=== PATIENT | female | born 1985 | race Caucasian/White ===

== ENCOUNTER 2018-04-24 15:19 | Outpatient (REF) | payer MEDICAID, SELFPAY ==
--- NOTE | 2018-04-24 14:30 | PAPFT_PTH ---
PATIENT: Tsering Washington LOC: [facility] U#:[id number] AGE/SX: 32/F ROOM: RE04/24/[address]: LEN Sharma : 1985 BED: DIS: 04/24/2018 SPEC #: [id number] RECD: 04/24/18 18:15 STATUS: SERVANDODavid BLANCO #: [id number] SAROJ: 04/24/18 14:[address]: Iris Nichols DEPT: [facility] Cytology RECD BY: Mahsa Johnson ENTERED: 04/24/18 18:15 SP TYPE: PAPFT OTHR DR: Eliza Arellano Tissues: 1 - CX/ENDOCX FOR PAP SMEARS Procedures: PAP THIN PREP/UVM Screening HPV DNA PROBE Comments: [id number]
== END 2018-04-24 15:39 ==
LOC: LBN 15:19
PROVIDERS: PCP Nurse Practitioner; Visit Provider Nurse Practitioner Family
DX: Z12.4 Encounter for screening for malignant neoplasm of cervix (principal); Z11.51 Encounter for screening for human papillomavirus (HPV)
CPT/HCPCS: 88142; 87624

== ENCOUNTER 2018-11-28 17:04 | Emergency (ER) | payer MEDICAID, SELFPAY ==
[2018-11-28 17:07] VITALS: BP 152/107; PULSE 85; RESP 18; TEMP 36.6; O2SAT 100
[2018-11-28 17:20] VITALS: RESP 16
--- NOTE | 2018-11-28 18:31 | ED.GENADUL_ITS ---
Discharge Plan Disposition Patient Disposition: OTHER Discharge Details Chief Complaint: GenMedical Clinical Impression: Left against medical advice Primary Care Provider: Eliza Arellano ED Provider: Rhett Mirza Home Meds and New Rx's Prescriptions: No Action medroxyprogesterone 150 mg/mL syringe 150 mg IM [id number] Qty: 1 RF: 5 Complete Multivitamin tablet 1 tab PO DAILY RF: 0 valacyclovir [Valtrex] 500 mg tablet 500 mg PO Q12H PRN Qty: 6 RF: 11 Discharge Data Discharge Comment: Patient left prior to completion of service Medical Decision Making 18:35 This is a nontoxic-appearing 33-year-old female with URI symptoms and cough. She complains of shortness of breath with exertion and chest heaviness. She apparently has a history of pneumonia very similar to her symptoms today. Her lungs are clear to auscultation bilaterally. She is not in any form of respiratory distress at the bedside. Plan was give patient an albuterol MDI with spacer training along with chest x-ray to evaluate for potential of pneumonia. Patient eloped from the emergency department prior to the completion of her work-up. [facility] General Date/Time Provider Initiated Documentation: 11/28/18 17:15 . HPI Narrative: Patient is a 33-year-old female with history of pneumonia presents to the emergency department with cold-like symptoms over the last week. She states that she had nasal congestion and sore throat along with a episode of pinkeye. She states that her URI symptoms have self resolved however she is now complaining of cough and shortness of breath. She is unable to produce any sputum. She reports dyspnea on exertion. She does feel chest tightness associated with her cough. She is had pneumonia in the past and her symptoms today feel very similar to that. Related Data Home Medications Medication Instructions Recorded Confirmed valacyclovir 500 mg tablet 500 mg PO Q12H PRN #6 tab 02/06/18 10/04/18 multivitamin,[id number] 1 tab PO DAILY 04/24/18 10/04/18 medroxyprogesterone 150 mg/mL 150 mg IM [id number] #1 ml 10/04/18 10/04/18 intramuscular syringe Previous Rx's Medication Instructions Recorded valacyclovir 500 mg tablet 500 mg PO Q12H PRN #6 tab 02/06/18 medroxyprogesterone 150 mg/mL 150 mg IM [id number] #1 ml 10/04/18 intramuscular syringe Allergies Allergy/AdvReac Type Severity Reaction Status Date / Time tramadol Allergy Severe face Verified 10/04/18 13:44 swelling, itching General Stated Complaint: GenMedical SOURAV: 4 Review of Systems Constitutional Reports chills, Reports fatigue, Reports fever(s) and Reports night sweats Eyes Denies blurry vision ENT Reports nasal congestion, Reports sinus pain, Reports sinus pressure and Reports sore throat Cardiovascular Denies chest pain and Reports dyspnea Respiratory Reports cough and Reports dyspnea Gastrointestinal Denies diarrhea, Denies nausea and Denies vomiting Musculoskeletal Denies myalgias Endocrine Reports fatigue [facility] Medical History Personal history of cervical dysplasia (Chronic 04/19/17) 2007 - [facility] III L[facility] Surgical History Cervical Conization/LEEP 2007- [facility] Family History Mother No problems noted. Father Diabetes Social History Smoking/Tobacco Use Status: Former Tobacco Use Quit Date: 10/28/18 Drug use: Never Substance use type: does not use Do you feel safe in your relationship?: Yes Female Reproductive History Menstrual control method: other (partner with vasectomy) History History 5 Para Hx # Term Pregnancies 3 Multiple births Hx # Pregnancies Ectopic pregnancies AB induced Hx Number of Living Children AB spontaneous Exam Const General: cooperative, healthy appearing, comfortable and no acute distress [facility] Head: normal to inspection Face and sinus: normal facial exam Mouth: oral mucosae normal Teeth and gingiva: dentition normal Throat: posterior oropharynx normal Eyes General: appearance normal, both eyes and all related structures Conjunctivae: conjunctivae normal Neck Neck: normal visual inspection, full ROM, no lymphadenopathy and no meningeal signs Lymphatic: no lymphadenopathy noted Chest Chest: normal inspection of the chest Resp Effort & Inspection: normal respiratory effort Auscultation: clear to auscultation bilaterally Cardio Jugular venous pressure: no JVD Rate: regular rate Rhythm: regular rhythm Heart Sounds: S1 normal and S2 normal Back/Spine/Pelvis Back: no CVA tenderness Skin General skin exam: no rashes or lesions noted Course Vital Signs Temperature 36.6 C 11/28/18 17:07 Pulse 85 11/28/18 17:07 Respiratory Rate 18 11/28/18 17:07 Blood Pressure 152/107 H 11/28/18 17:07 Pulse Oximetry 100 11/28/18 17:07 Temperature 36.6 C 11/28/18 17:07 Pulse 85 11/28/18 17:07 Respiratory Rate 16 11/28/18 17:20 Respiratory Effort Non-Labored 11/28/18 17:20 Respiratory Depth Normal 11/28/18 17:20 Respiratory Pattern Normal 11/28/18 17:20 Blood Pressure 152/107 H 11/28/18 17:07 Blood Pressure Position Sitting 11/28/18 17:07 Pulse Oximetry 100 11/28/18 17:07 Oxygen Delivery Method Room Air 11/28/18 17:07 Oxygen Flow Rate 0 11/28/18 17:07 Pain Level 2 11/28/18 17:07
== END 2018-11-28 18:25 | disposition other institution (70) ==
PROVIDERS: Emergency Provider Physician Assistant; PCP Nurse Practitioner
DX: R06.02 Shortness of breath (principal); R05 Cough; Z87.01 Personal history of pneumonia (recurrent)
CPT/HCPCS: 93005; 99284; 93010

== ENCOUNTER 2018-12-07 18:21 | Emergency (ER) | payer MEDICAID, SELFPAY ==
--- NOTE | 2018-12-07 18:25 | NUR.NOTE ---
Nursing Note: pt hit distal tip of third digit with with hammer at 1800 pt sates 8/10 pain. minimal bleeding
[2018-12-07 18:26] VITALS: BP 163/119; PULSE 90; RESP 16; TEMP 37.2; O2SAT 99
--- NOTE | 2018-12-07 18:46 | W.ED.GENAD ---
Discharge Plan Disposition Patient Disposition: HOME Condition: Improving Discharge Details Chief Complaint: Laceration Clinical Impression: Avulsion of finger tip Primary Care Provider: Eliza Arellano ED Provider: gS Fair Home Meds and New Rx's Prescriptions: Continued medroxyprogesterone 150 mg/mL syringe 150 mg IM [id number] Qty: 1 RF: 5 Complete Multivitamin tablet 1 tab PO DAILY RF: 0 valacyclovir [Valtrex] 500 mg tablet 500 mg PO Q12H PRN Qty: 6 RF: 11 Discharge Instructions Additional Instructions: Tylenol and/or ibuprofen as needed for pain. Elevate above the level of the heart to reduce pain and swelling. Ice to reduce discomfort. Leave splint and dressing in place for 3 days, then may remove and replace with Band-Aid. We will refer you to orthopedics for follow-up. Please call the office for an appointment time at [phone]. Return for any acute concern Medical Decision Making 33-year-old female struck her left long finger distal portion with a hammer by accident. She is essentially of avulsed distal portion of the fingertip and a blunt force injury. Digital block was performed with a 50-50 mix of 1% lidocaine and bupivacaine. Subsequently the devascularize wound edge was trimmed the patient placed in a Xeroform dressing and AlumaFoam splint for comfort. There was no laceration edge to be repaired. I feel it is reasonable for her to have a follow-up appointment for a wound check in orthopedic clinic. I discussed this with her. She will use Tylenol or ibuprofen as needed for pain. HPI General Mode of arrival: ambulatory. Date/Time Provider Initiated Documentation: 12/07/18 18:34. Limitations to Documentation: no limitations. Information obtained by: patient. History of Present Illness 33 year old F presents to the emergency department with the chief complaint of Left long finger distal injury after struck with hammer, described as moderate, Quality is described as dull and constant, and is localized to the left and upper extremity. Patient reports no radiation. Patient started experiencing this minute(s) and it has been constant. No relieving factors improve symptom(s), No exacerbating factors reported . Patient notes no other symptoms.. Patient did receive the following treatments prior to arrival, none Related Data Home Medications Medication Instructions Recorded Confirmed valacyclovir 500 mg tablet 500 mg PO Q12H PRN #6 tab 02/06/18 12/07/18 multivitamin,dp-qghf-lzdajfbu 1 tab PO DAILY 04/24/18 12/07/18 medroxyprogesterone 150 mg/mL 150 mg IM [id number] #1 ml 10/04/18 12/07/18 intramuscular syringe Previous Rx's Medication Instructions Recorded valacyclovir 500 mg tablet 500 mg PO Q12H PRN #6 tab 02/06/18 medroxyprogesterone 150 mg/mL 150 mg IM [id number] #1 ml 10/04/18 intramuscular syringe Allergies Allergy/AdvReac Type Severity Reaction Status Date / Time tramadol Allergy Severe face Verified 12/07/18 18:29 swelling, itching General Stated Complaint: Laceration SOURAV: 4 Review of Systems Review of Systems Narrative: No numbness or tingling, denies other injury. 4 systems reviewed and otherwise negative [facility] Medical History Personal history of cervical dysplasia (Chronic 04/19/17) 2007 - [facility] III LEEP/[facility] Surgical History Cervical Conization/LEEP 2008- [facility] Family History Mother No problems noted. Father Diabetes Social History Smoking/Tobacco Use Status: Former Tobacco Use Quit Date: 10/28/18 Drug use: Never Substance use type: does not use Do you feel safe at home: Yes Do you feel safe in your relationship?: Yes Female Reproductive History Menstrual control method: other (partner with vasectomy) History History 5 Para Hx # Term Pregnancies 3 Multiple births Hx # Pregnancies Ectopic pregnancies AB induced Hx Number of Living Children AB spontaneous Exam Narrative Exam Narrative: GEN: awake, alert, oriented 3. Pleasant, well groomed, interactive. HEAD: Normocephalic, atraumatic ENT: Mucous membranes moist, oropharynx unremarkable, External ear exam unremarkable EYES: PERRL, EOMI EXT: Full ROM, the left long finger has distal/tip laceration at the edge of the distal nailbed. Sensation is intact. Cap refill less than 2 seconds Neuro: Grossly normal neurologic exam, conversant, interactive. Psych: Speech fluent, thoughts congruent, affect normal Course Vital Signs Vital signs: Vital Signs Temperature 37.2 C 12/07/18 18:26 Pulse 90 12/07/18 18:26 Respiratory Rate 16 12/07/18 18:26 Blood Pressure 163/119 H 12/07/18 18:26 Pulse Oximetry 99 12/07/18 18:26 Temperature 37.2 C 12/07/18 18:26 Temperature Source Skin 12/07/18 18:26 Pulse 90 12/07/18 18:26 Respiratory Rate 16 12/07/18 18:26 Respiratory Effort 12/07/18 18:29 Blood Pressure 163/119 H 12/07/18 18:26 Pulse Oximetry 99 12/07/18 18:26 Oxygen Delivery Method Room Air 12/07/18 18:26 Oxygen Flow Rate 0 12/07/18 18:26 Pain Level 8 12/07/18 18:26
--- NOTE | 2018-12-07 19:40 | DI.RAD_ITS ---
EXAM: XR FINGER LT MIDDLE INDICATION: distal pain after striking with hammer. COMPARISON: RIGHT WRIST COMPLETE from 05/29/2017 TECHNIQUE: 2D digital imaging was performed. FINDINGS: Soft tissue swelling is noted over the distal phalanx and region of the nail bed. There is no evidenc e of a fracture or dislocation.
--- NOTE | 2018-12-07 19:47 | DI.VRAD_ITS ---
PROCEDURE INFORMATION: Exam: XR Left Finger(s) Exam date and time: 12/07/2018 6:47 PM Clinical history: 33 years old, female; Finger(s); Patient HX: Left distal middle finger pain, struck with hammer. TECHNIQUE: Imaging protocol: XR Left fingers. Views: Minimum 2 views. COMPARISON: No relevant prior studies available. FINDINGS: Bones/joints: No significant osseous abnormality is identified. Soft tissues: There is soft tissue injury over the finger tip. IMPRESSION: Soft tissue injury over the finger tip. Dictated and Authenticated by: Wilson Galloway MD. Ordering:ISAURO Bettencourt MD
[2018-12-07 20:50] VITALS: BP 135/94; PULSE 81; RESP 17; TEMP 36.9; O2SAT 95
== END 2018-12-07 20:50 | disposition home or self-care (01) ==
LOC: ER 20:18
PROVIDERS: Emergency Provider Emergency Medicine; PCP Nurse Practitioner
DX: S61.203A Unspecified open wound of left middle finger without damage to nail, initial encounter (principal); W27.0XXA Contact with workbench tool, initial encounter
CPT/HCPCS: 64450; 73140

== ENCOUNTER 2018-12-14 11:15 | Day surgery (SDC) | payer MEDICAID, SELFPAY ==
[2018-12-14 11:47] VITALS: BP 142/104; PULSE 87; RESP 15; TEMP 37.1; O2SAT 87
[2018-12-14] MEDS: Lidocaine 2% Multi-Dose 50 ML VIAL (12:41)
--- NOTE | 2018-12-14 13:14 | PDOC.DSDIS_ITS ---
Discharge Plan Disposition Patient Disposition: HOME Condition: Good Discharge Details Reason For Visit: repair nailbed laceration LMF Attending Provider: Sg Barboza Primary Care Provider: Eliza Arellano Home Meds and New Rx's Prescriptions: No Action medroxyprogesterone 150 mg/mL syringe 150 mg IM [id number] Qty: 1 RF: 5 Complete Multivitamin tablet 1 tab PO DAILY RF: 0 valacyclovir [Valtrex] 500 mg tablet 500 mg PO Q12H PRN Qty: 6 RF: 11 Discharge Instructions Additional Instructions: Take tylenol or ibuprofen for pain. Keep dressings dry and intact until return. Return to 's office in one week(Next Tue) Referrals: Sg Barboza MD [ [facility] STAFF PHYSICIAN] - (f/u next Tue) Activity:: Activity as Tolerated Remove Dressings/Wound Care:: Do Not Remove Shower/Bathe:: Cover Diet:: As Tolerated Discharge Orders Discharge Orders: Discharge Order (Routine); Ordered 12/14/18 Ordered By: Sg Barboza DS: Diagnosis Discharge Diagnosis (1) Nailbed laceration, finger: Status: Acute
--- NOTE | 2018-12-26 16:19 | ROE_ITS ---
DATE OF PROCEDURE: December 14, 2018 PREOPERATIVE DIAGNOSIS: Nail bed laceration left middle finger. POSTOPERATIVE DIAGNOSIS: Same. PROCEDURE: Repair of nail bed laceration left middle finger. ANESTHESIA: Digital block using 1% Xylocaine solution and 0.5% Marcaine with epinephrine solution. SURGEON: Sg Barboza M.D. INDICATIONS: This is a 33-year-old white female who injured her left middle fingertip when she struc k it accidentally with a hammer on 12/07/18. She was seen in the Emergency Room at that time for eval uation. I subsequently saw her in the office on 12/13/18 for a follow-up. I saw that the nail bed cardenas d been avulsed so it was no longer under the fingernail, but was lying dorsal to the fingernail and d istal to it. I felt this was unsatisfactory and that the nail bed needed to be properly and anatomic ally repaired. This was explained to the patient and she agreed with my recommendations. PROCEDURE: The patient was taken to the Operating Room on 12/14/18. The left hand is prepped and mason ped free in the usual sterile fashion. I performed a digital block to the left middle finger at the level of the MCP joint using first 1% Xylocaine solution followed by 0.5% Marcaine with an epinephrin e solution. The fingernail was freed on the radial side and then cut so I could raise a flap with th e nail to expose the nail bed. The nail bed was irrigated and granulation tissue was excised so that the margins of the nail bed could be clearly seen. At this point the nail bed was repaired with a f ew interrupted #4-0 Nylon sutures. The portion of the nail that had been dissected and elevated was tacked down with a single #3-0 Nylon suture so that it provided a splint to the nail bed repair. The wound was irrigated with saline solution. The wound was dressed with Xeroform gauze followed by tub e gauze. The patient tolerated the procedure well and was discharged to the Day Surgery Unit in good condition. The patient was discharged home from the Day Surgery Unit with instructions to keep her dressings dry and intact until she follows up with me in one week. She was given a prescription for breakthrough pain of Hydrocodone with APAP 5/325, one tablet every six hours, if needed. She will take ibuprofen for milder pain.
== END 2018-12-14 13:39 | disposition home or self-care (01) ==
PROVIDERS: PCP Nurse Practitioner; Visit Provider Orthopaedic Surgery
PROC: (CPT 26055; principal; 2018-12-14 13:00)
DX: S61.313A Laceration without foreign body of left middle finger with damage to nail, initial encounter (principal); W27.8XXA Contact with other nonpowered hand tool, initial encounter
CPT/HCPCS: 11760

== ENCOUNTER 2019-03-21 13:36 | Emergency (ER) | payer MEDICAID, SELFPAY ==
[2019-03-21 13:41] VITALS: BP 150/101; PULSE 77; RESP 16; TEMP 36.5; O2SAT 100
--- NOTE | 2019-03-21 13:46 | W.ED.GENAD ---
Discharge Plan Disposition Patient Disposition: HOME Condition: Stable Discharge Details Chief Complaint: Orthopedic Clinical Impression: Pain in toe Primary Care Provider: Eliza Arellano ED Provider: Vilma Cintron Home Meds and New Rx's Prescriptions: No Action Complete Multivitamin tablet 1 tab PO DAILY RF: 0 valacyclovir [Valtrex] 500 mg tablet 500 mg PO Q12H PRN Qty: 6 RF: 11 Discharge Instructions Instructions: Foot Contusion (ED) Additional Instructions: Rest. Activities as tolerated. Elevate injury to prevent swelling. Ice to the area of discomfort for 15 min. 3-5 times daily. Motrin every 8 hours with food or Tylenol every 6 hours for soreness if needed over the counter for comfort. Followup with orthopedic doctor as discussed if not improving in one week. Post operative shoe for comfort. Please call [phone] for your test results. Return for any worsening or concerns sooner if needed. Referrals: Mohamud Phillips MD [ [facility] STAFF PHYSICIAN] - Discharge Data Discharge Date/Time-TO BE ENTERED AT DEPARTURE: 03/21/19 15:35 Medical Decision Making Is a 33-year-old patient presenting for complaints of left foot pain after kicking a door. Patient complaining of left great toe pain specifically on exam patient only has focal tenderness overlying the great toe with associated ecchymosis. No open wounds. Mild limitation in range of motion due to pain. Sensation intact. X-rays ordered. Offered Motrin or Tylenol declines at this time. Given the long wait time for x-rays to be read patient is requesting discharge home without radiologists x-ray interpretation. Patient offered crutches but declines. Patient consents will be to adelaida tape and postoperative shoe. Patient made aware of my concern of the possibility of fracture. Patient will call back for x-ray results. Encouraged follow-up with orthopedics if fracture is present, rice encouraged. Patient reports her understanding agrees with plan of care. The patient was stable and requested discharge. Prior to discharge, my usual and customary return precautions were reviewed with the patient - this included follow-up instructions and reasons to return to the Emergency Department if conditions worsens, does not improve as expected, or other new concerns arise. HPI General Date/Time Provider Initiated Documentation: 03/21/19 13:42. HPI Narrative: Is a 33-year-old patient presenting for complaints of left foot pain. Patient reports she kicked a door she was trying to fix. Patient reports injury occurred yesterday. Patient reports pain and bruising since that time. Limping gait. Pain specifically in the left great toe. Denies any numbness, tingling or weakness. No open wounds. Denies any other sites of pain or concerns. Related Data Home Medications Medication Instructions Recorded Confirmed valacyclovir 500 mg tablet 500 mg PO Q12H PRN #6 tab 02/06/18 03/21/19 multivitamin,sr-svwi-gjofpcmb 1 tab PO DAILY 04/24/18 03/21/19 Previous Rx's Medication Instructions Recorded valacyclovir 500 mg tablet 500 mg PO Q12H PRN #6 tab 02/06/18 Allergies Allergy/AdvReac Type Severity Reaction Status Date / Time tramadol Allergy Severe face Verified 03/21/19 13:46 swelling, itching General Stated Complaint: Orthopedic SOURAV: 4 Review of Systems No All systems reviewed & are unremarkable except as noted in HPI and below Musculoskeletal Musculoskeletal: Reports abnormal gait, Denies muscle weakness, Denies numbness, Denies radiating pain into limb and Denies tingling Integumentary/Breasts Skin/Breast: Reports other (Ecchymosis) Neurologic Neurologic: Reports abnormal gait, Denies numbness and Denies tingling PFSH Medical History Hx of fracture of finger (Acute) Pt reports rrf fx w/ pin placement. Personal history of cervical dysplasia (Chronic 04/19/17) 2008 - [facility] III LEEP/[facility] Social History Smoking/Tobacco Use Status: Current every day Tobacco Type: cigarettes Tobacco: How many years used: 19 Drug use: Never Substance use type: does not use Current gender identity: female Do you feel safe at home: Yes Do you feel safe in your relationship?: Yes Female Reproductive History Menstrual control method: other (partner with vasectomy) History History 5 Para Hx # Term Pregnancies 3 Multiple births Hx # Pregnancies Ectopic pregnancies AB induced Hx Number of Living Children AB spontaneous Exam Narrative Exam Narrative: CONST: Healthy appearing patient, in no acute distress. Well hydrated. Alert and oriented. MUSCULOSKELETAL: No knee pain with palpation on the left. No brumfield pain with palpation or calf pain. No ankle pain with palpation. No Achilles tenderness. Achilles tendon intact. No dorsal foot pain with palpation. Great toe pain with palpation of the proximal phalanx. Mild distal phalanx pain. Ecchymosis noted to the great toe. No open wounds. Sensation intact. SKIN: Normal. Dry. No rashes. NEURO: Alert and awake. Speech clear. PSYCH: Normal affect. Cooperative. Course Vital Signs Vital signs: Vital Signs Temperature 36.5 C 03/21/19 13:41 Pulse 77 03/21/19 13:41 Respiratory Rate 16 03/21/19 13:41 Blood Pressure 150/101 H 03/21/19 13:41 Pulse Oximetry 100 03/21/19 13:41 Temperature 36.5 C 03/21/19 13:41 Temperature Source Skin 03/21/19 13:41 Pulse 77 03/21/19 13:41 Respiratory Rate 16 03/21/19 13:41 Respiratory Effort Non-Labored 03/21/19 13:41 Blood Pressure 150/101 H 03/21/19 13:41 Blood Pressure Position Sitting 03/21/19 13:41 Pulse Oximetry 100 03/21/19 13:41 Pain Level 6 03/21/19 13:41
--- NOTE | 2019-03-21 13:55 | DI.RAD_ITS ---
EXAM: XR TOE LT GREAT CLINICAL HISTORY: pain, injury great toe TECHNIQUE: COMPARISON: No exams were available for comparison FINDINGS: Three views were obtained. No fracture is seen. IMPRESSION:
--- NOTE | 2019-03-21 15:33 | DI.VRAD_ITS ---
PROCEDURE INFORMATION: Exam: XR Left Toe(s) Exam date and time: 03/21/2019 2:00 PM Age: 33 years old Clinical indication: Injury or trauma; Initial encounter; Sprain or strain; Toes; Left great toe; Patient HX: Pain, injury to toe, kicked door 2 times. TECHNIQUE: Imaging protocol: XR Left toes. Views: Minimum 2 views. COMPARISON: No relevant prior studies available. FINDINGS: Bones/joints: There is no evidence of acute fracture.There is no evidence of malalignment or dislocation. Soft tissues: Normal. IMPRESSION: There is no evidence of acute fracture.There is no evidence of malalignment or dislocation. Dictated and Authenticated by: Chip Eden MD. Ordering:SHIRA Esparza MD
== END 2019-03-21 15:35 | disposition home or self-care (01) ==
PROVIDERS: Emergency Provider Physician Assistant; PCP Nurse Practitioner
DX: M79.675 Pain in left toe(s) (principal)
CPT/HCPCS: 99283; 73660; L3650

== ENCOUNTER 2019-05-07 11:43 | Outpatient (REF) | payer MEDICAID, SELFPAY ==
--- NOTE | 2019-05-07 10:45 | PAPFT_PTH ---
PATIENT: Tsering Washington LOC: [facility] U#:[id number] AGE/SX: 33/F ROOM: RE05/07/[address]: Stacy Anne NP : 1985 BED: DIS: 05/07/2019 SPEC #: [id number] RECD: 05/07/19 12:55 STATUS: GABI REReba #: [id number] SAROJ: 05/07/19 10:[address]: Stacy Anne NP DEPT: [facility] Cytology RECD BY: Mahsa Johnson ENTERED: 05/07/19 12:55 SP TYPE: PAPFT OTHR DR: Eliza Arellano Tissues: 1 - CX/ENDOCX FOR PAP SMEARS Procedures: PAP THIN PREP/UVM Screening HPV DNA PROBE Comments: [id number]
== END 2019-05-07 12:03 ==
LOC: LBN 11:43
PROVIDERS: PCP Nurse Practitioner; Visit Provider Nurse Practitioner Women's Health
DX: Z12.4 Encounter for screening for malignant neoplasm of cervix (principal); Z11.51 Encounter for screening for human papillomavirus (HPV)
CPT/HCPCS: 88142; 87624

== ENCOUNTER 2019-12-31 14:53 | Outpatient (REF) | payer MEDICAID, SELFPAY ==
[2019-12-31 18:40] LABS: HCT 39.6 % (36.0-46.0); HGB 13.1 g/dL (11.2-15.7); MCH 30.4 pg (27.0-33.0); MCHC 33.1 % (32.0-36.0); MCV 91.9 fL (80-95); MPV 10.3 fL (8.0-11.0); Platelet Count 308 10^3/uL (130-400); RBC 4.31 10^6/uL (3.93-5.22); RDW 11.9 % (11.7-14.6); RDW-SD 40.3 fL; WBC 8.05 10^3/uL (4.4-10.8)
[2019-12-31 18:59] LABS: ALT 26 U/L (14-59); AST 15 U/L (15-37); Alkaline Phosphatase 92 U/L (46-116); Anion Gap 11.4 mmol/L (3-11); BUN 10 mg/dL (7-18); Bilirubin, Total 0.6 mg/dL (0.2-1.0); CO2 23.6 mmol/L (21.0-32.0); Chloride 106 mmol/L (98-107); Glucose 135 mg/dL (74-106); Potassium 3.9 mmol/L (3.5-5.1); Sodium 141 mmol/L (136-145); TSH (W/Ref FT4) 2.01 uIU/mL (0.36-3.74)
== END 2019-12-31 15:13 ==
LOC: NCHCN 14:53
PROVIDERS: PCP Nurse Practitioner; Visit Provider Nurse Practitioner
DX: R53.83 Other fatigue (principal); R14.0 Abdominal distension (gaseous)
CPT/HCPCS: 80053; 85027; 84443

== ENCOUNTER 2020-04-09 19:26 | Outpatient (REF) | payer MEDICAID, SELFPAY ==
[2020-04-11 22:15] LABS: COVID-19 RT-PCR Result NEGATIVE (Negative)
== END 2020-04-09 19:46 ==
LOC: NCHCN 19:26
PROVIDERS: PCP Nurse Practitioner; Visit Provider Physician Assistant Medical
DX: J06.9 Acute upper respiratory infection, unspecified (principal)
CPT/HCPCS: U0003

== ENCOUNTER 2020-05-12 14:44 | Outpatient (REF) | payer MEDICAID, SELFPAY ==
--- NOTE | 2020-05-12 11:10 | PAPFT_PTH ---
PATIENT: Tsering Washington LOC: [facility] U#:[id number] AGE/SX: 34/F ROOM: RE05/12/[address]: Stacy Anne NP : 1985 BED: DIS: 05/12/2020 SPEC #: [id number] RECD: 05/12/20 18:22 STATUS: GABI REReba #: [id number] SAROJ: 05/12/20 11:[address]: Stacy Anne NP DEPT: [facility] Cytology RECD BY: Mahsa Johnson ENTERED: 05/12/20 18:22 SP TYPE: PAPFT OTHR DR: Eliza Arellano Tissues: 1 - CX/ENDOCX FOR PAP SMEARS Procedures: PAP THIN PREP/UVM Screening HPV DNA PROBE Comments: [id number]
== END 2020-05-12 14:45 | disposition home or self-care (01) ==
LOC: LBN 14:44
PROVIDERS: PCP Nurse Practitioner; Visit Provider Nurse Practitioner Women's Health
DX: Z12.4 Encounter for screening for malignant neoplasm of cervix (principal); Z11.51 Encounter for screening for human papillomavirus (HPV); Z87.410 Personal history of cervical dysplasia
CPT/HCPCS: 88142; 87624

== ENCOUNTER 2020-10-03 12:42 | Outpatient (REF) | payer MEDICAID, SELFPAY ==
[2020-10-02 19:48] LABS: ALT 22 U/L (14-59); AST 12 U/L (15-37); Albumin 3.6 g/dL (3.4-5.0); Alkaline Phosphatase 88 U/L (46-116); BUN 10 mg/dL (7-18); Bilirubin, Total 0.4 mg/dL (0.2-1.0); CREATININE 0.9 mg/dL (0.55-1.02); Calcium 9.1 mg/dL (8.5-10.1); Chloride 106 mmol/L (98-107); Glucose 99 mg/dL (74-106); Potassium 4.2 mmol/L (3.5-5.1); Sodium 141 mmol/L (136-145); TSH (W/Ref FT4) 0.72 uIU/mL (0.36-3.74); Total Protein 6.7 g/dL (6.4-8.2)
== END 2020-10-03 12:43 | disposition home or self-care (01) ==
LOC: NCHCN 12:42
PROVIDERS: PCP Nurse Practitioner; Visit Provider Nurse Practitioner
DX: R03.0 Elevated blood-pressure reading, without diagnosis of hypertension (principal)
CPT/HCPCS: 80053; 84443

== ENCOUNTER 2021-01-19 13:36 | Outpatient (REF) | payer MEDICAID, SELFPAY ==
[2021-01-21 12:07] LABS: COVID-19 RT-PCR UVMMC Result Negative (Negative)
== END 2021-01-19 13:37 | disposition home or self-care (01) ==
LOC: LBN 13:36
PROVIDERS: PCP Nurse Practitioner; Visit Provider Physician Assistant
DX: Z20.822 Contact with and (suspected) exposure to COVID-19 (principal); J06.9 Acute upper respiratory infection, unspecified
CPT/HCPCS: U0003

== ENCOUNTER 2021-03-04 14:42 | Outpatient (REF) | payer MEDICAID, SELFPAY ==
[2021-03-05 15:04] LABS: COVID-19 RT-PCR UVMMC Result Negative (Negative)
== END 2021-03-04 14:43 | disposition home or self-care (01) ==
LOC: NCHCN 14:42
PROVIDERS: PCP Nurse Practitioner; Visit Provider Nurse Practitioner
DX: Z20.822 Contact with and (suspected) exposure to COVID-19 (principal); J02.9 Acute pharyngitis, unspecified
CPT/HCPCS: U0003

== ENCOUNTER 2021-06-19 00:09 | Emergency (ER) | payer MEDICAID, SELFPAY ==
[2021-06-19 00:12] VITALS: BP 197/125; PULSE 88; RESP 18; TEMP 36.6; O2SAT 99
--- NOTE | 2021-06-19 00:15 | DI.RAD_ITS ---
Exam(s) XR FOOT RT COMPLETE EXAM: XR FOOT RT COMPLETE CLINICAL HISTORY: foot pain most at great toe. TECHNIQUE: 2D digital imaging was performed of the right foot. Three images were obtained. AP, obl ique and lateral views were obtained. COMPARISON: No exams were available for comparison FINDINGS: BONES: No acute fracture is present. No bony destructive lesion is seen. JOINTS: No dislocation present. SOFT TISSUE: In the soft tissues on the plantar surface of the foot in the area of the medial sesamoi d at the 1st MTP joint there is an elongated on amorphous calcification present. It does not arise f rom the adjacent bones. The soft tissues are otherwise unremarkable. IMPRESSION: 1. No acute fracture or dislocation. 2. Elongated amorphous calcification on the plantar surface of the foot in the location of the tibial sesamoid at the 1st MTP joint. These dystrophic calcifications are nonspecific. This may represent abnormal medial sesamoid, sequelae of chronic sesamoiditis or other causes of soft tissue calcificat ion. Please correlate clinically. DATA REPOSITORY: RADIATION DOSE DELIVERED:
--- NOTE | 2021-06-19 00:23 | ED.GENADUL_ITS ---
Discharge Plan Discharge Details Chief Complaint: Orthopedic Primary Care Provider: Eliza Arellano ED Provider: Sg Fair Home Meds and New Rx's Prescriptions: No Action naproxen 250 mg tablet 250 mg PO ONCE PRN0RF Complete Multivitamin tablet 1 tab PO DAILY 0RF escitalopram oxalate [Lexapro] 10 mg tablet 10 mg PO DAILY 0RF valacyclovir [Valtrex] 500 mg tablet 500 mg PO Q12H PRN Qty: 6 11RF Rx Instructions: Take 1 tab PO evry 12 hours for 3 days Medical Decision Making This is a 35-year-old female who presents the insidious onset of nontraumatic right foot pain most at her right great toe. She has not injured the area, there is no ecchymosis. The onset, appearance are most consistent with gout. Must exclude underlying bony pathology and patient referred for x-ray. XR: No acute fracture or dislocation. There is an elongated calcification in the expected location of the tibial sesamoid. See formal report. I do feel this clinically is most consistent with gout I will treat with dose of colchicine and prednisone. Will place patient in postop shoe. We will ask for care management referral to podiatry. HPI General Mode of arrival: ambulatory . Date/Time Provider Initiated Documentation: 06/19/21 00:17 . Limitations to Documentation: no limitations . Information obtained by: patient . History of Present Illness 35 year old F presents to the emergency department with the chief complaint of Atraumatic right foot pain, redness swelling at great toe, described as moderate, Quality is described as dull and constant, and is localized to the right and lower extremity. Patient reports no radiation. Patient started experiencing this hour(s) and it has been constant. improves with No relieving factors improve symptom(s), Movement worsens symptoms . Patient notes no other symptoms.. Patient did receive the following treatments prior to arrival, none Related Data Home Medications Medication Instructions Recorded Confirmed multivitamin,[id number]-[id number]-[id number] 1 tab PO DAILY 04/24/18 06/16/21 (Complete Multivitamin) naproxen 250 mg tablet 250 mg PO ONCE PRN tab 05/29/19 06/16/21 escitalopram oxalate 10 mg tablet 10 mg PO DAILY 09/29/20 06/16/21 (Lexapro) valacyclovir 500 mg tablet 500 mg PO Q12H PRN #6 tab 06/16/21 06/16/21 (Valtrex) Previous Rx's Medication Instructions Recorded valacyclovir 500 mg tablet 500 mg PO Q12H PRN #6 tab 06/16/21 (Valtrex) Allergies Allergy/AdvReac Type Severity Reaction Status Date / Time tramadol Allergy Severe face Verified 06/16/21 09:00 swelling, itching General Stated Complaint: Orthopedic SOURAV: 4 Review of Systems Narrative: No fall or injury. No fever. Otherwise well. PFSH All Active Problems Migraine headache without aura (Acute) Adjustment disorder with mixed anxiety and depressed mood (Acute) Nailbed laceration, finger (Acute) LMF DOS: 12/14/18 Personal history of cervical dysplasia (Chronic 04/19/17) 2007 - [facility] III L[facility] Medical History Abdominal bloating Acute low back pain Ganglion cyst Genital herpes Headache Hx of fracture of finger Pt reports rrf fx w/ pin placement. Tobacco abuse Surgical History Cervical Conization/LEEP 2007- [facility] Family History Mother No problems noted. Father Diabetes Social History Smoking/Tobacco Use Status: Current every day Tobacco Type: cigarettes Tobacco: How many years used: 19 Quit status: considering quitting Smoking risk assessment performed?: Yes Alcohol Intake: current Alcohol Intake frequency: a few times a week Alcohol type: beer Drug use: Never Substance use type: does not use Household members: children Housing: house Current gender identity: female Seatbelt use: always Do you feel safe at home: Yes Do you feel safe in your relationship?: Yes Female Reproductive History Menstrual control method: none History History 5 Para 3 Hx # Term Pregnancies 3 Multiple births Hx # Pregnancies Ectopic pregnancies AB induced Hx Number of Living Children AB spontaneous Exam Narrative Exam Narrative: GEN: awake, alert, oriented 3. Pleasant, well groomed, interactive. HEAD: Normocephalic, atraumatic ENT: Mucous membranes moist, External ear exam unremarkable EYES: PERRL, EOMI NECK: Full ROM CHEST/RESP: No respiratory distress EXT: Full ROM, mild swelling, erythema present overlying right great toe at the base. Tender to palpation. Neuro: Grossly normal neurologic exam, conversant, interactive. Psych: Speech fluent, thoughts congruent, affect normal Course Vital Signs Vital signs: Vital Signs Temperature 36.6 C 06/19/21 00:12 Pulse 88 06/19/21 00:12 Respiratory Rate 18 06/19/21 00:12 Blood Pressure 197/125 H 06/19/21 00:12 Pulse Oximetry 99 06/19/21 00:12 Temperature 36.6 C 06/19/21 00:12 Temperature Source Tympanic 06/19/21 00:12 Pulse 88 06/19/21 00:12 Respiratory Rate 18 06/19/21 00:12 Respiratory Effort 06/19/21 00:16 Blood Pressure 197/125 H 06/19/21 00:12 Blood Pressure Position Supine 06/19/21 00:12 Pulse Oximetry 99 06/19/21 00:12 Oxygen Delivery Method Room Air 06/19/21 00:12 Oxygen Flow Rate 0 06/19/21 00:12 Pain Level 7 06/19/21 00:12
--- NOTE | 2021-06-19 01:36 | DI.VRAD_ITS ---
PROCEDURE INFORMATION: Exam: XR Right Foot Exam date and time: 06/19/2021 12:32 AM Age: 35 years old Clinical indication: Foot and toes; Right; Patient HX: No injury, new onset pain at great toe TECHNIQUE: Imaging protocol: XR Right foot. Views: 3 or more views. COMPARISON: CR RIGHT ANKLE COMPLETE 07/21/2017 5:16 PM FINDINGS: Bones/joints: No suspicious osseous lytic or blastic lesion. No acute fracture or dislocation. In the expected location of the tibial sesamoid there is amorphous, elongated calcification with increased sclerosis with lack of definitive visualization of the tibial sesamoid. Soft tissues: Soft tissue edema centered upon the right 1st MTP joint. IMPRESSION: 1. No acute fracture or dislocation. 2. In the expected location of the tibial sesamoid there is amorphous, elongated calcification with increased sclerosis with lack of definitive visualization of the tibial sesamoid which may represent an abnormal tibial sesamoid, possibly related to chronic sesamoiditis, but indeterminate. Other causes of dystrophic or periarticular soft tissue calcification not excluded. Correlate clinically. Dictated and Authenticated by: Galileo Hill MD. Ordering:ISAURO Bettencourt MD
--- NOTE | 2021-06-19 01:42 | NUR.NOTE ---
Referral to Podiatry Dr Jesus to follow up in a couple of weeks for ?chronic sesamoiditis. Patient placed in short walking boot.Nursing Note:
== END 2021-06-19 02:11 | disposition home or self-care (01) ==
PROVIDERS: Emergency Provider Emergency Medicine; PCP Nurse Practitioner
DX: M10.9 Gout, unspecified (principal); L53.9 Erythematous condition, unspecified; M79.89 Other specified soft tissue disorders; F17.210 Nicotine dependence, cigarettes, uncomplicated
CPT/HCPCS: 99283; 73630

== ENCOUNTER 2021-09-03 18:19 | Outpatient (REF) | payer MEDICAID, SELFPAY ==
[2021-09-03 19:32] LABS: ALT 26 U/L (14-59); AST 28 U/L (15-37); Alkaline Phosphatase 83 U/L (46-116); Anion Gap 10.4 mmol/L (3-11); BUN 9 mg/dL (7-18); Bilirubin, Total 0.4 mg/dL (0.2-1.0); CO2 25.6 mmol/L (21.0-32.0); CREATININE 0.8 mg/dL (0.55-1.02); Calcium 9.7 mg/dL (8.5-10.1); Chloride 107 mmol/L (98-107); Glucose 93 mg/dL (74-106); Sodium 143 mmol/L (136-145); Total Protein 7.6 g/dL (6.4-8.2); Uric Acid 3.2 mg/dL (2.6-6.0)
== END 2021-09-03 18:20 | disposition home or self-care (01) ==
LOC: NCHCN 18:19
PROVIDERS: PCP Nurse Practitioner; Visit Provider Nurse Practitioner Family
DX: M10.071 Idiopathic gout, right ankle and foot (principal); R03.0 Elevated blood-pressure reading, without diagnosis of hypertension; F17.210 Nicotine dependence, cigarettes, uncomplicated
CPT/HCPCS: 80053; 84550

== ENCOUNTER 2023-12-04 02:31 | Emergency (ER) | payer MEDICAID, SELFPAY ==
[2023-12-04 02:33] VITALS: BP 140/104; PULSE 89; RESP 16; TEMP 36.7; O2SAT 98
[2023-12-04 02:36] VITALS: BP 140/104; PULSE 89; RESP 16; TEMP 36.7; O2SAT 98
[2023-12-04 02:37] VITALS: RESP 16
--- OUTSIDE RECORDS SUMMARY | 2023-12-04 02:38 | XMS_ITS | Encounter Summary ---
Author Organization [facility] [place] [address] Phone Care Team Providers Care Cafe Associate Name Role Phone Maggie Alonzo APRN Primary Care Provider [phone] Encounter Details Date Type Department Care Team (Late st Contact Info) Description 04/16/2022 Notation [facility] Health Information Management [facility], [address] [place] [address] [phone] Generic, Provider [facility] [address] [place] [address] Social History Tobacco Use Types Packs/Day Years Used Date Smoking Tobacco: Every Day Cigarettes Vaping Alcohol Use Standard Drinks/Week Comments Not Currently 0 (1 standard drink = 0.6 oz pur e alcohol) PHQ-2 Answer Date Recorded PHQ-2 Total Score - Complete PHQ-9 if score >=3 4 03/04/2022 Sex and Gender Information Value Date Recorded Sex Assigned at Not on file Gender Identity Not on file Sexual Orientation Not on file documented as of this encounter Plan of Treatment Not on file documented as of this encounter Procedures Procedure Name Priority Date/Time Associated Diagnosis Comments SCANNED MISCELLANEOUS LAB TEST 04/16/2022 11:59 PM EST documented in this encounter Results * SCANNED MISCELLANEOUS LAB TEST (04/16/2022 11:59 PM EST) Provider Generic LAB BLOOD ORDERABLES documented in this encounter Visit Diagnoses Not on filedocumented in this encounter Care Teams Cafe Associate Relationship Specialty Start Date End Date Maggie Alonzo APRN [address] [place] [address] PCP - General Nurse Practitioner - Family Medicine 06/13/23 documented as of this encounter
--- OUTSIDE RECORDS SUMMARY | 2023-12-04 02:38 | XMS_ITS | Encounter Summary ---
Author Organization [facility] [place] [place] [address] Phone Care Team Providers Care Investigation Clerk Name Role Phone Emily Bowman APRN Primary Care Provider [phone] Reason for Visit * Reason Onset Date Comments Refill Request 03/01/2023 lisinopril (PRIN IVIL) 10 MG Oral Tab Encounter Details Date Type Department Care Team (Late st Contact Info) Description 03/01/2023 Refill Primary Care of [address] [phone] Emily Bowman APRN [address] [place], [place] [id number] Refill Request (lisinopril (PRINIVIL) 10 MG Oral Tab) Social History Tobacco Use Types Packs/Day Years Used Date Smoking Tobacco: Every Day Cigarettes Vaping Smokeless Tobacco: Never Alcohol Use Standard Drinks/Week Comments Yes 0 (1 standard drink = 0.6 oz pur e alcohol) sometimes PHQ-2 Answer Date Recorded PHQ-2 Total Score - Complete PHQ-9 if score >=3 0 08/17/2022 Sex and Gender Information Value Date Recorded Sex Assigned at Not on file Gender Identity Not on file Sexual Orientation Not on file documented as of this encounter Miscellaneous Notes * Telephone Encounter - Emily Means - 03/01/2023 8:47 AM EST Patient calling requesting refill: DRUG lisinopril (PRINIVIL) 10 MG Oral Tab [facility] 08/17/2022 Emily Bowman APRN Visit date not found documented in this encounter Plan of Treatment Not on file documented as of this encounter Visit Diagnoses Diagnosis Hypertension goal BP (blood pressure) < 130/80 Unspecified essential hypertension documented in this encounter Care Teams Investigation Clerk Relationship Specialty Start Date End Date Emily Bowman, REGISTERED NURSE AMBULATORY PCP - General Nurse Practitioner - Family Medicine 06/28/22 04/27/23 documented as of this encounter
--- OUTSIDE RECORDS SUMMARY | 2023-12-04 02:38 | XMS_ITS | Encounter Summary ---
Author Organization [facility] Address [address] [place] [address] Care Team Providers Care Bank And Savings Securities Trader Name Role Phone Lucrecia Penny APRN - MACHINE PRINTER Primary Care Provider [phone] Reason for Visit * Reason Comments Rash Pt having a rash to her lower right arm. Encounter Details Date Type Department Care Team (Latest Contact Info) Description 11/21/2022 11:12 AM EDT - 11/21/2022 11:48 AM EDT Hospital Encounter [facility] [address] [place] [address] Sosa Kaplan MD [address] [place], [place] [phone] Allergic contact dermatitis, unspecified trigger (Primary Dx) Discharge Disposition: Home or Self Care Social History Tobacco Use Types Packs/Day Years Used Date Smoking Tobacco: Some Days Cigarettes Smokeless Tobacco: Never Alcohol Use Standard Drinks/Week Comments Not Currently 0 (1 standard drink = 0.6 oz pur e alcohol) Sex and Gender Information Value Date Recorded Sex Assigned at Not on file Gender Identity Not on file Sexual Orientation Not on file documented as of this encounter Last Filed Vital Signs Vital Sign Reading Time Taken Comments Blood Pressure 136/105 11/21/2022 11:17 AM EDT Pulse 72 11/21/2022 11:17 AM EDT Temperature 37.1 ??C (98.8 ??F) 11/21/2022 11:17 AM E DT Respiratory Rate 18 11/21/2022 11:17 AM EDT Oxygen Saturation 97% 11/21/2022 11:17 AM EDT Inhaled Oxygen Concentration - - Weight - - Height - - Body Mass Index - - documented in this encounter Discharge Instructions * Discharge Instructions* Sosa Kaplan MD - 11/21/2022 11:44 AM EDT Go to nearest emergency room for any worsening symptoms such as difficulty breathing, lip or tongueswelling, throat closing. Please see your doctor next couple days for re-evaluation. Please wash your clothing, towels, pillow cases, sheets well with hot water to get rid of any possible plant sap, if this is caused by poison winifred. You may use topical calamine lotion. You may also use Benadryl as needed for itching. Please also wash under your fingernails since the plant sap can get under there and cause the rash to spread. For larger troublesome spots, you may use hydrocortisone 1% cream; avoid the face and neck area. * Attachments The following attachments cannot be sent through Care Everywhere. * Dermatitis (Somali) documented in this encounter Medications at Time of Discharge Medication Sig Dispensed Refills Start Date End Date simvastatin (ZOCOR) 10 MG tablet 09/20/19 23 lisinopril (PRINIVIL;ZESTRIL) 10 MG tablet 09/20/2022 documented as of this encounter Plan of Treatment Not on file documented as of this encounter Visit Diagnoses Diagnosis Allergic contact dermatitis, unspecified trigger- Primary documented in this encounter Care Teams Bank And Savings Securities Trader Relationship Specialty Start Date End Date Lucrecia Penny, PEST CONTROL SUPERVISOR - MACHINE PRINTER [address] [place] [phone] PCP - General 02/02/22 documented as of this encounter
--- OUTSIDE RECORDS SUMMARY | 2023-12-04 02:38 | XMS_ITS | Encounter Summary ---
Author Organization [facility] Address [address] [place] [address] Phone Care Team Providers Care Herbarium Curator Name Role Phone Emily Bowman APRN Primary Care Provider [phone] Encounter Details Date Type Department Care Team (Latest Contact Info) Description 08/17/2022 Travel Social History Tobacco Use Types Packs/Day Years [...] on file Sexual Orientation Not on file COVID-19 Exposure Response Date Recorded In the last 10 days, have yo u been in contact with someone who was confirmed or suspected to have Coronavirus/COVID-19? No / Unsure 08/17/2022 10:10 AM EDT documented as of this encounter Plan of Treatment Not on file documented as of this encounter Visit Diagnoses Not on filedocumented in this encounter Care Teams Herbarium Curator Relationship Specialty Start Date End Date Emily Bowman APRN PCP - General Nurse Practitioner - Family Medicine 06/28/22 04/27/23 documented as of this encounter
--- OUTSIDE RECORDS SUMMARY | 2023-12-04 02:38 | XMS_ITS | Encounter Summary ---
Author Organization [facility] Address [address] [place] [address] Phone Care Team Providers Care Client Manager Large Law Name Role Phone PcpMichelle MD Primary Care Provider Unavailabl e Encounter Details Date Type Department Care Team (Latest Contact Info) Description 02/01/2022 Travel Social History Tobacco Use Types Packs/Day [...] suspected to have Coronavirus/COVID-19? No / Unsure 02/01/2022 8:49 AM EST documented as of this encounter Plan of Treatment Not on file documented as of this encounter Visit Diagnoses Not on filedocumented in this encounter Care Teams Client Manager Large Law Relationship Specialty Start Date End Date PcpMichelle MD PCP - General Generic/Test/No PCP 12/14/21 06/22/22 documented as of this encounter
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
--- OUTSIDE RECORDS SUMMARY | 2023-12-04 02:38 | XMS_ITS | Encounter Summary ---
Author Organization [facility] [place] [address] Phone Care Team Providers Care Aerospace Project Engineer Name Role Phone Emily Bowman APRN Primary Care Provider +1- [phone] Reason for Visit * Reason Comments New Patient physical Encounter Details Date Type Department Care Team (Late st Contact Info) Description 06/28/2022 9:15 AM EDT Office Visit Primary Care of [address] [address] Emily Bowman, SHOP TAILOR APPRENTICE [address] [place], [place] [id number] Preventive measure (Primary Dx); Hypertension goal BP (blood pressure) < 130/80; Smoking; Generalized anxiety disorder; Major depressive disorder with current active episode, unspecified depression episode severity, unspecified whether recurrent Social History Tobacco Use Types Packs/Day Years Used Date Smoking Tobacco: Every Day Cigarettes Vaping Smokeless Tobacco: Never Tobacco Cessation:Ready to Q uit: Not Asked; Counseling Given: Not Answered Alcohol Use Standard Drinks/Week Comments Yes 0 (1 standard drink = 0.6 oz pur e alcohol) sometimes PHQ-2 Answer Date Recorded PHQ-2 Total Score - Complete PHQ-9 if score >=3 0 06/28/2022 Sex and Gender Information Value Date Recorded Sex Assigned at Not on file Gender Identity Not on file Sexual Orientation Not on file COVID-19 Exposure Response Date Recorded In the last 10 days, have yo u been in contact with someone who was confirmed or suspected to have Coronavirus/COVID-19? No / Unsure 06/28/2022 9:22 AM EDT documented as of this encounter Last Filed Vital Signs Vital Sign Reading Time Taken Comments Blood Pressure 154/102 06/28/2022 9:19 AM EDT Pulse 80 06/28/2022 9:19 AM EDT Temperature 37 ??C (98.6 ??F) 06/28/2022 9:19 AM EDT Respiratory Rate 17 06/28/2022 9:19 AM EDT Oxygen Saturation 99% 06/28/2022 9:19 AM EDT Inhaled Oxygen Concentration - - Weight 67.1 kg (148 lb) 06/28/2022 9:19 AM EDT Height 161.5 cm (5' 3.6) 06/28/2022 9:19 AM EDT Body Mass Index 25.72 06/28/2022 9:19 AM EDT documented in this encounter Patient Instructions * Patient Instructions* Emily Bowman APRN - 06/28/2022 9:15 AM EDT Discussed normal BP parameters and heart healthy diet. Decrease intake of high sodium foods such asfrozen, processed and canned. Include 20 mins daily activity as tolerated for best heart health at least 5x weekly. Monitor BP daily and report readings consistently over 140/90 to provider. We are increasing your lisinopril to 10mg twice a day. * Attachments The following attachments cannot be sent through Care Everywhere. * Diet: DASH (Vietnamese) * Blood Pressure Test: Home (Vietnamese) documented in this encounter Progress Notes * Nena Cervantes MA Student - 06/28/2022 9:15 AM EDT Tdap 08/26/20 Pap 05/13/20 - NILM HPV 05/13/20 - Negative * Nyasia Hart LPN - 06/28/2022 9:15 AM EDT Patient name and verified Communication Assessment: What language do you feel most comfortable speaking with your healthcare provider? Primary Media Production Support Manager Needed Special Considerations Vietnamese No Being seen today for Patient presents with: New Patient: physical Vitals taken Reviewed: Has patient been seen by or been receiving care from a specialist? no Since last visit, has patient been hospitalized? no Refills needed? yes Social History Tobacco Use Smoking status: Every Day Types: Cigarettes, Vaping Smokeless tobacco: Never Ready to quit: Not Answered Counseling given: Not Answered * Emily Bowman APRN - 06/28/2022 9:15 AM EDT Subjective: Tsering Washington is a 36 year old female. Patient presents with: New Patient: physical HPI Patient is a 36-year-old female 4 para 2. Seen today to establish care and for annual wellness visit. She is up-to-date with breast exam and Pap smear done had a recent RESTAURANT HOSPITALITY MANAGER visit last week. She has a history of hypertension uncontrolled, blood pressure today is 154/102. States my blood pressure is always high I think I need more medication. Patient works full-time in a cleaning business, she is a positive smoker, not inclined to quit at this time. No excessive alcohol use, no drugs. Has an incredibly stressful lifestyle taking care of her 19-year-old daughter, 20-year-old son whohas a history of drug abuse, also going through legal battles with an ex regarding financial concerns. She plans to move to [place] next year. She is due for routine screening labs and screenings. She has had a COVID-vaccine declines further no flu vaccines, declines STD testing at this time. Shehas no chest pain, no dizziness, no acute shortness of breath. States I think I am always short ofbreath because of smoke. No history of asthma. No syncopal episodes. Regular monthly menses, uses abstinence as control. Review of Systems Constitutional: Negative. Negative for activity change, appetite change, chills, fatigue and fever. HENT: Negative. Eyes: Negative. Respiratory: Negative. Negative for chest tightness and shortness of breath. Cardiovascular: Negative. Negative for chest pain. Gastrointestinal: Negative. Negative for abdominal pain, constipation, diarrhea, nausea and vomiting. Endocrine: Negative. Genitourinary: Negative. Negative for difficulty urinating, dysuria, flank pain, frequency, menstrual problem, urgency, vaginal discharge and vaginal pain. Musculoskeletal: Negative. Skin: Negative for color change and rash. Allergic/Immunologic: Negative. Neurological: Negative. Negative for dizziness, weakness and headaches. Hematological: Negative. Psychiatric/Behavioral: Positive for agitation and dysphoric mood. Negative for self-injury and suicidal ideas. The patient is nervous/anxious. Stress, anxiety and depression per patient well-controlled Patient Active Problem List: Hypertension goal BP (blood pressure) < 130/80 Major depressive disorder Generalized anxiety disorder Women's annual routine gynecological examination Past Medical History: Diagnosis Date Depression Hypertension No past surgical history on file. Family History Problem Relation Name Age of Onset Hypertension Father Stomach cancer Maternal Aunt Unspecified Skin Cancer Maternal Grandmother Lung cancer Maternal Grandfather Breast Cancer Negative FH Ovarian Cancer Negative FH Uterine Cancer Negative FH Social History Tobacco Use Smoking status: Every Day Types: Cigarettes, Vaping Smokeless tobacco: Never Alcohol use: Yes Comment: sometimes Drug use: Not Currently Current Outpatient Medications Medication Sig lisinopril (PRINIVIL) 5 MG Oral Tab Take 1 Tablet (5 mg total) by mouth in the morning. (Patient not taking: Reported on 06/23/2022) Review of patient's allergies indicates: Tramadol Objective: Visit Vitals BP (!) 154/102 (Location: Left Arm, Patient Position: Sitting, Cuff Size: Regular) Pulse 80 Temp 98.6 ??F (37 ??C) (Temporal) Resp 17 Ht 5' 3.6 (1.615 m) Wt 148 lb (67.1 kg) LMP 06/02/2022 (Exact Date) SpO2 99% BMI 25.72 kg/m?? Physical Exam Vitals and nursing note reviewed. Constitutional: General: She is not in acute distress. Appearance: Normal appearance. She is normal weight. HENT: Head: Normocephalic and atraumatic. Right Ear: Tympanic membrane, ear canal and external ear normal. There is no impacted cerumen. Left Ear: Tympanic membrane, ear canal and external ear normal. There is no impacted cerumen. Nose: Nose normal. No congestion or rhinorrhea. Mouth/Throat: Mouth: Mucous membranes are moist. Pharynx: Oropharynx is clear. No oropharyngeal exudate. Eyes: General: No scleral icterus. Conjunctiva/sclera: Conjunctivae normal. Pupils: Pupils are equal, round, and reactive to light. Neck: Vascular: No carotid bruit. Cardiovascular: Rate and Rhythm: Normal rate and regular rhythm. Pulses: Normal pulses. Heart sounds: Normal heart sounds. Pulmonary: Effort: Pulmonary effort is normal. No respiratory distress. Breath sounds: Normal breath sounds. Abdominal: General: Abdomen is flat. Bowel sounds are normal. There is no distension. Palpations: There is no mass. Tenderness: There is no abdominal tenderness. There is no right CVA tenderness, left CVA tenderness, guarding or rebound. Hernia: No hernia is present. Musculoskeletal: General: No swelling or deformity. Normal range of motion. Cervical back: Normal range of motion. No rigidity or tenderness. Right lower leg: No edema. Left lower leg: No edema. Lymphadenopathy: Cervical: No cervical adenopathy. Skin: General: Skin is warm and dry. Capillary Refill: Capillary refill takes less than 2 seconds. Coloration: Skin is not pale. Neurological: General: No focal deficit present. Mental Status: She is alert and oriented to person, place, and time. Mental status is at baseline. Psychiatric: Mood and Affect: Mood normal. Behavior: Behavior normal. Thought Content: Thought content normal. Judgment: Judgment normal. Assessment/Plan: Diagnoses and all orders for this visit: Preventive measure (Primary) Assessment & Plan: Pap smear up-to-date 2020, not due. Patient just had breast and pelvic exam. Declines today. Tetanus vaccine up-to-date, declines flu, declines further vaccines. Orders: - Complete Blood Count with Auto Differential - Comprehensive Metabolic Panel - Lipid Panel(Direct LDL) - TSH reflex FT4 - Hemoglobin A1c Hypertension goal BP (blood pressure) < 130/80 Assessment & Plan: Increase lisinopril to 10 mg twice a day, follow-up with blood pressure logs in 8 weeks. Heart healthy diet lifestyles reviewed continue exercise Orders: - Lipid Panel(Direct LDL) - TSH reflex FT4 - lisinopril (PRINIVIL) 10 MG Oral Tab Smoking Assessment & Plan: Encouraged to quit smoking declines intervention at this time Generalized anxiety disorder Assessment & Plan: Denies suicidal/homocidal ideations. Continue with plan of care to include counseling and psych services and follow up as needed. Stable at this time. Patient understands red flag warnings and when to call for help, avoiding isolation and nature therapy will help with symptom management. Major depressive disorder with current active episode, unspecified depression episode severity, unspecified whether recurrent Assessment & Plan: Stable at this time, no SI or HI. Continue to monitor documented in this encounter Miscellaneous Notes * Assessment & Plan Note - Emily Bowman APRN - 06/28/2022 9:47 AM EDT Associated Problem(s): Preventive measure Pap smear up-to-date 2020, not due. Patient just had breast and pelvic exam. Declines today. Tetanus vaccine up-to-date, declines flu, declines further vaccines. * Assessment & Plan Note - Emily Bowman APRN - 06/28/2022 9:47 AM EDT Associated Problem(s): Smoking Encouraged to quit smoking declines intervention at this time * Assessment & Plan Note - Emily Bowman APRN - 06/28/2022 9:47 AM EDT Associated Problem(s): Major depressive disorder Stable at this time, no SI or HI. Continue to monitor * Assessment & Plan Note - Emily Bowman APRN - 06/28/2022 9:47 AM EDT Associated Problem(s): Hypertension goal BP (blood pressure) < 130/80 Increase lisinopril to 10 mg twice a day, follow-up with blood pressure logs in 8 weeks. Heart healthy diet lifestyles reviewed continue exercise * Assessment & Plan Note - Emily Bowman APRN - 06/28/2022 9:47 AM EDT Associated Problem(s): Generalized anxiety disorder Denies suicidal/homocidal ideations. Continue with plan of care to include counseling and psych services and follow up as needed. Stable at this time. Patient understands red flag warnings and when to call for help, avoiding isolation and nature therapy will help with symptom management. documented in this encounter Plan of Treatment Not on file documented as of this encounter Results * Hemoglobin A1c (06/29/2022 8:31 AM EDT) Hemoglobin A1C 5.0 <=5.7 % LAB SEROLOGY ATELLICA METHOD 06/29/2022 2:49 PM EDT [facility] Est. Average Glucose 97 68 - 123 mg/dL LAB SEROLOGY ATELLICA METHOD 06/29/2022 2:49 PM EDT [facility] Blood ENTIRE ANTECUBITAL VEIN / Unknown Venipuncture / Unknown 06/29/2022 8:31 AM EDT 06/29/2022 8:31 AM EDT Emily Bowman APRN LAB BLOOD ORDERABL ES Performing Organization Address City/[facility]/ZIP Co de Phone Number [facility] [address] [place] [phone] * TSH reflex FT4 (06/29/2022 8:31 AM EDT) TSH 1.757 0.550 - 4.780 mIU/L LAB SEROLOGY ATELLICA METHOD 06/29/2022 2:09 PM EDT [facility] Blood ENTIRE ANTECUBITAL VEIN / Unknown Venipuncture / Unknown 06/29/2022 8:31 AM EDT 06/29/2022 8:31 AM EDT Emily Bowman APRN LAB BLOOD ORDERABL ES Performing Organization Address City/[facility]/ZIP Co de Phone Number [facility] [address] [place] [phone] * (ABNORMAL) Lipid Panel(Direct LDL) (06/29/2022 8:31 AM EDT) Cholesterol 215(H) <=200 mg/dL LAB SEROLOGY [facility]ELLICA METHOD 06/29/2022 2:15 PM T [facility] Triglycerides 85 <=150 mg/dL LAB SEROLOGY ATELLICA METHOD 06/29/2022 2:15 PM [facility] Comment: Interpretation ?? mg/dL Normal ?< 150 Borderline ? 150 - 199 High ?200 - 499 Very high ? >= 500 HDL 63(H) 41 - 60 mg/dL LAB SEROLOGY ATEMETHODIST [facility] METHOD 06/29/2022 2:15 PM [facility] LDL-Direct 145(H) <=130 mg/dL LAB SEROLOGY ATELLICA METHOD 06/29/2022 2:15 PM [facility] Comment: Interpretation ?mg/dL Optimal ?< 100 Near/Above Optimal ?100 - 129 Borderline High ?130 - 159 High ? 160 - 189 Very High ?> ??= 190 Cholesterol HDL Ratio 3.4 06/29/2022 2:15 PM [facility] Blood ENTIRE ANTECUBITAL VEIN / Unknown Venipuncture / Unknown 06/29/2022 8:31 AM EDT 06/29/2022 8:31 AM EDT Emily Andrade Colby SHOP TAILOR APPRENTICE LAB BLOOD ORDERABL ES [facility] [address] [place] [address] * (ABNORMAL) Comprehensive Metabolic Panel (06/29/2022 8:31 AM EDT) Sodium 142 136 - 145 mmol/L LAB SEROLOGY [facility]ELLICA METHOD 06/29/2022 2:15 PM EDT [facility] Potassium 3.8 3.5 - 5.1 mmol/L LAB SEROLOGY [facility]ELLICA METHOD 06/29/2022 2:15 PM EDT [facility] Chloride 110(H) 98 - 107 mmol/L LAB SEROLOGY ATELLICA METHOD 06/29/2022 2:15 PM EDT [facility] Carbon Dioxide 23 20 - 31 mmol/L LAB SEROLOGY [facility]LLICA METHOD 06/29/2022 2:15 PM EDT [facility] Anion Gap 9 5 - 15 mmol/L LAB SEROLOGY [facility]LLICA METHOD 06/29/2022 2:15 PM EDT [facility] Glucose 93 74 - 100 mg/dL LAB SEROLOGY [facility]ELLICA METHOD 06/29/2022 2:15 PM EDT [facility] BUN 13 9 - 23 mg/dL LAB SEROLOGY [facility]LLICA METHOD 06/29/2022 2:15 PM EDT [facility] Creatinine 0.82(H) 0.50 - 0.80 mg/dL LAB SEROLOGY ATELLICA METHOD 06/29/2022 2:15 PM EDT [facility] BUN/Creatinine Ratio 15.85 LAB SEROLOGY ATELLICA METHOD 06/29/2022 2:15 PM EDT [facility] Calcium 8.9 8.3 - 10.6 mg/dL LAB SEROLOGY ATELLICA METHOD 06/29/2022 2:15 PM EDT [facility] Protein, Total 6.4 5.7 - 8.2 g/dL LAB SEROLOGY [facility]ELLICA METHOD 06/29/2022 2:15 PM EDT [facility] Albumin 4.2 3.2 - 4.8 g/dL LAB SEROLOGY ATELLICA METHOD 06/29/2022 2:15 PM EDT [facility] AST 19 <=34 U/L LAB SEROLOGY [facility] METHOD 06/29/2022 2:15 PM EDT [facility] ALT 12 10 - 49 U/L LAB SEROLOGY [facility] METHOD 06/29/2022 2:15 PM EDT [facility] ALK Phos 66 46 - 116 U/L LAB SEROLOGY [facility] METHOD 06/29/2022 2:15 PM EDT [facility] Bilirubin, Total 0.5 0.3 - 1.2 mg/dL LAB SEROLOGY [facility]ELLICA METHOD 06/29/2022 2:15 PM EDT [facility] Globulin 2.2 g/dL LAB SEROLOGY ATELLICA METHOD 06/29/2022 2:15 PM EDT [facility] Albumin Globulin Ratio 1.91 LAB SEROLOGY ATELLICA METHOD 06/29/2022 2:15 PM EDT [facility] eGFR >90 >=60 mL/min/1. 73m*2 LAB SEROLOGY ATELLICA METHOD 06/29/2022 2:15 PM EDT [facility] Blood ENTIRE ANTECUBITAL VEIN / Unknown Venipuncture / Unknown 06/29/2022 8:31 AM EDT 06/29/2022 8:31 AM EDT Emily Bowman APRN LAB BLOOD ORDERABL ES [facility] [address] [place] [address] documented in this encounter Visit Diagnoses Diagnosis Preventive measure- Primary Unspecified prophylactic or treatment measure Hypertension goal BP (blood pressure) < 130/80 Unspecified essential hypertension Smoking Tobacco use disorder Generalized anxiety disorder Major depressive disorder with current active episode, unspecified depression episode severity, unspecified whether recurrent documented in this encounter Care Teams Aerospace Project Engineer Relationship Specialty Start Date End Date Emily Bowman APRN PCP - General Nurse Practitioner - Family Medicine 06/28/22 04/27/23 documented as of this encounter
--- OUTSIDE RECORDS SUMMARY | 2023-12-04 02:38 | XMS_ITS | Encounter Summary ---
Author Organization [facility] [place] [address] Phone Care Team Providers Care Hide And Skin Classer Name Role Phone Pcp, No MD Primary Care Provider Unavailabl e Encounter Details Date Type Department Care Team (Late st Contact Info) Description 02/02/2022 Telephone Health & Resource Center at [facility]. [address], [address] [place] [address] Adela Meeks RN Social History Tobacco Use Types Packs/Day Years [...] AM EST documented as of this encounter Miscellaneous Notes * Telephone Encounter - Mag Jackson - 02/18/2022 2:05 PM EST No show letter 1 has been sent. * Telephone Encounter - Mag Jackson - 02/08/2022 7:18 AM EST Filled out medical release but forgot to sign paperwork, reaching out to to have her come to officeto sign. * Telephone Encounter - Adela Meeks RN - 02/04/2022 8:51 AM EST Called patient, spoke with Tsering. Scheduled 2 week follow-up on 02/15/[address] Enrique. She will come to office tomorrow to complete Release of Medical record for [place] Provider. * Telephone Encounter - Adela Meeks RN - 02/02/2022 10:35 AM EST Called patient, unable to leave message. Phone rang several times then disconnected. Several calls placed to same number all resulting in same result. Will continue to reach out to patient. If patient returns call need to set-up appointment for 2 week follow-up. documented in this encounter Plan of Treatment Not on file documented as of this encounter Visit Diagnoses Not on filedocumented in this encounter Care Teams Hide And Skin Classer Relationship Specialty Start Date End Date Pcp, MD Michelle PCP - General Generic/Test/No PCP 12/14/21 06/22/22 documented as of this encounter
--- OUTSIDE RECORDS SUMMARY | 2023-12-04 02:38 | XMS_ITS | Encounter Summary ---
Author Organization [facility] [place] [address] Phone Care Team Providers Care Division Superintendent Name Role Phone Emily Bowman APRN Primary Care Provider [phone]- [phone] Reason for Visit * Reason Onset Date Comments Refill Request 09/02/2022 lisinopril (PRIN IVIL) 10 MG Oral Tab- Needs sent to [facility] [place] Encounter Details Date Type Department Care Team (Late st Contact Info) Description 09/02/2022 Refill Primary Care of [address] [id number] Emily Bowman, NORM [address] [place], [place] [id number] Refill Request (lisinopril (PRINIVIL) 10 MG Oral Tab- Needs sent to [facility] in [place] ) Social History Tobacco Use Types Packs/Day Years [...] AM EDT documented as of this encounter Miscellaneous Notes * Telephone Encounter - Emily Means - 09/02/2022 10:22 AM EDT Patient on vacation needs one time script for lisinopril (PRINIVIL) 10 MG Oral Tab [facility] documented in this encounter Plan of Treatment Not on file documented as of this encounter Visit Diagnoses Diagnosis Hypertension goal BP (blood pressure) < 130/80 Unspecified essential hypertension documented in this encounter Care Teams Division Superintendent Relationship Specialty Start Date End Date Emily Bowman, NORM PCP - General Nurse Practitioner - Family Medicine 06/28/22 04/27/23 documented as of this encounter
--- OUTSIDE RECORDS SUMMARY | 2023-12-04 02:38 | XMS_ITS | Encounter Summary ---
Author Organization [facility] [place] [address] Phone Care Team Providers Care Telemarketing Agent Name Role Phone Pcp, No MD Primary Care Provider Unavailabl e Reason for Visit * Reason Comments Heart Problem Walk into clinic, re ported she can feel her heart rate pounding in chest, has a cough, chest pressure, she reported chest pain then states more like chest pressure. States symptoms started when she was getting ready for work. Encounter Details Date Type Department Care Team (Latest Contact Info) Description 02/25/2022 2:30 PM EST Nurse Visit Health & Resource Center at [facility], [facility]. [address], [address] [place] [address] Adela Meeks RN Illness, unspecified (Primary Dx) Social History Tobacco Use Types Packs/Day Years [...] Sign Reading Time Taken Comments Blood Pressure 156/84 02/25/2022 2:40 PM EST Pulse 115 02/25/2022 2:40 PM EST Temperature 38.8 ??C (101.8 ??F) 02/25/2022 2:[address] Respiratory Rate - - Oxygen Saturation 98% 02/25/2022 2:40 PM EST Inhaled Oxygen Concentration - - Weight - - Height - - Body Mass Index - - documented in this encounter Progress Notes * Adela Meeks RN - 02/25/2022 2:30 PM EST Patient running fever at 101.8f, reports chest pressure and pain. Provided education and instructedpatient be seen at urgent care. Needs proper evaluation by provider. Patient heart rate fluctuatingbetween 103 to 128. Patient has a cough, some shortness of breath, chest pressure. Told patient we can complete covid test in office but this does not address patient reports of chest pressure and reports of racing heart which needs more emergent care. Patient reports she will go to urgent care, provided patient verbal information of locations for urgent care center. documented in this encounter Plan of Treatment Not on file documented as of this encounter Visit Diagnoses Diagnosis Illness, unspecified- Primary documented in this encounter Care Teams Telemarketing Agent Relationship Specialty Start Date End Date Michelle Mcneill MD PCP - General Generic/Test/No PCP 12/14/21 06/22/22 documented as of this encounter
--- OUTSIDE RECORDS SUMMARY | 2023-12-04 02:38 | XMS_ITS | Encounter Summary ---
Author Organization [facility] [place] [address] Phone Care Team Providers Care Blasting Coal Miner Name Role Phone Emily Bowman EYE SURGEON Primary Care Provider [phone]- [phone] Reason for Visit * Reason Onset Date Comments Results 07/29/2022 Lab results Encounter Details Date Type Department Care Team (Late st Contact Info) Description 07/29/2022 Telephone [facility] of [place] [address] [place] [address] Emily Bowman, EYE SURGEON [address] [place] [address] Results (Lab results) Social History Tobacco Use Types Packs/Day Years [...] encounter Miscellaneous Notes * Telephone Encounter - Nena Cervantes MA - 07/29/2022 4:19 PM EDT Called patient to notify of results from 06/29/22 06/29/2022 3:27 PM EDT Back to Top Cbc and tsh normal. Discuss cmp and lipid at follow up visit Patient requested to be seen sooner due to going [place] of state in [place], rescheduled for 08/17. No further questions at this time. * Telephone Encounter - Roni Gray - 07/29/2022 1:30 PM EDT Labs recently calling for results. [phone] Roni Gray documented in this encounter Plan of Treatment Not on file documented as of this encounter Visit Diagnoses Not on filedocumented in this encounter Care Teams Blasting Coal Miner Relationship Specialty Start Date End Date Emily Bowman APRN PCP - General Nurse Practitioner - Family Medicine 06/28/22 04/27/23 documented as of this encounter
--- OUTSIDE RECORDS SUMMARY | 2023-12-04 02:38 | XMS_ITS | Encounter Summary ---
Author Organization [facility] [place] [address] Phone Care Team Providers Care Import Dispatcher Name Role Phone Pcp, No MD Primary Care Provider Unavailabl e Reason for Visit * Reason Comments Refill/Eprescribe Encounter Details Date Type Department Care Team (Late st Contact Info) Description 05/08/2022 Refill [facility] & Resource Center at [employer] [address] [facility], [address] [place] [address] Maddi Enrique MD [address] [place] [id number] Refill/Eprescribe Social History Tobacco Use Types Packs/Day Years [...] encounter Miscellaneous Notes * Telephone Encounter - Mariah Justin LPN - 05/10/2022 2:28 PM EST This is not our patient? Do you know who this may go to? documented in this encounter Plan of Treatment Not on file documented as of this encounter Visit Diagnoses Diagnosis Major depressive disorder with current active episode, unspecified depression episode severity, unspecified whether recurrent Generalized anxiety disorder documented in this encounter Care Teams Import Dispatcher Relationship Specialty Start Date End Date Pcp, Michelle, MD PCP - General Generic/Test/No PCP 12/14/21 06/22/22 documented as of this encounter
--- OUTSIDE RECORDS SUMMARY | 2023-12-04 02:38 | XMS_ITS | Encounter Summary ---
Author Organization [facility] [place] [place] [address] Phone Care Team Providers Care Acid Loader Name Role Phone Emily Bowman APRN Primary Care Provider [phone] Reason for Visit * Reason Onset Date Comments Abdominal Pain 12/27/2022 Encounter Details Date Type Department Care Team (Late st Contact Info) Description 12/27/2022 Nurse Triage Primary Care of [address] [address] Emily Bowman, PHONE CIRCUIT OPERATOR [address] [place] [address] Abdominal Pain Social History Tobacco Use Types Packs/Day Years [...] encounter Miscellaneous Notes * Telephone Encounter - Keke Albarran RN - 12/27/2022 3:15 PM EDT Patient is currently at the ER. * Telephone Encounter - Keke Albarran RN - 12/27/2022 1:31 PM EDT Patient left a message at 11:48. Reports abd pain, vomiting documented in this encounter Plan of Treatment Not on file documented as of this encounter Visit Diagnoses Not on filedocumented in this encounter Care Teams Acid Loader Relationship Specialty Start Date End Date Emily Bowman APRN PCP - General Nurse Practitioner - Family Medicine 06/28/22 04/27/23 documented as of this encounter
--- OUTSIDE RECORDS SUMMARY | 2023-12-04 02:38 | XMS_ITS | Encounter Summary ---
Author Organization [facility] [place] [address] Phone Care Team Providers Care Manager Federal Name Role Phone PcpMichelle MD Primary Care Provider Unavailabl e Encounter Details Date Type Department Care Team (Late st Contact Info) Description 04/19/2022 Abstract Primary Care of [address] [id number] Nyasia Hart LPN Social History Tobacco Use Types Packs/Day Years [...] on filedocumented in this encounter Care Teams Manager Federal Relationship Specialty Start Date End Date PcpMichelle MD PCP - General Generic/Test/No PCP 12/14/21 06/22/22 documented as of this encounter
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
--- OUTSIDE RECORDS SUMMARY | 2023-12-04 02:38 | XMS_ITS | Encounter Summary ---
Author Organization [facility] [place] [address] Phone Care Team Providers Care Geological Technical Officer Name Role Phone Maggie Alonzo APRN Primary Care Provider [phone] Encounter Details Date Type Department Care Team (Late st Contact Info) Description 06/08/2022 Notation [facility] Health Information Management [facility], [address] [place] [address] Generic, Provider [facility] [address] [place] [address] RELEASE OF RECORDS - WOMENS WELLNESS Social History Tobacco Use Types Packs/Day Years [...] on filedocumented in this encounter Care Teams Geological Technical Officer Relationship Specialty Start Date End Date Maggie Alonzo APRN [address] [place], [place] [id number] PCP - General Nurse Practitioner - Family Medicine 06/13/23 documented as of this encounter
--- OUTSIDE RECORDS SUMMARY | 2023-12-04 02:38 | XMS_ITS | Encounter Summary ---
Author Organization [facility] [place] [address] Phone Care Team Providers Care Plugman Name Role Phone Emily Bowman APRN Primary Care Provider [phone] Reason for Visit * Reason Comments Refill/Eprescribe Encounter Details Date Type Department Care Team (Late st Contact Info) Description 07/27/2022 Refill Health & Resource Center at [employer] [address] [facility], [address] [place] [address] Maddi Enrique MD [address] [place] [address] Refill/Eprescribe Social History Tobacco Use Types Packs/Day [...] recurrent documented in this encounter Care Teams Plugman Relationship Specialty Start Date End Date Emily Bowamn, NORM PCP - General Nurse Practitioner - Family Medicine 06/28/22 04/27/23 documented as of this encounter
--- OUTSIDE RECORDS SUMMARY | 2023-12-04 02:38 | XMS_ITS | Encounter Summary ---
Author Organization [facility] Address [address] [place] [address] Care Team Providers Care Tube And Manifold Builder Name Role Phone Lucrecia Penny APRN - GENERAL LABOR Primary Care Provider [phone] Reason for Visit * Reason Comments Back Pain Pt states she was wa lking her dog 1.5 hours ago and the dog pulled, causing pain in her back. Pt states she walked home and sit down, but upon getting up felt acute, sharp pain. Pain located in mid R side of back, radiates around R side of ribs. Encounter Details Date Type Department Care Team (Latest Contact Info) Description 02/02/2022 3:25 PM EST - 02/02/2022 4:07 PM [facility] Encounter [facility] [address] [place] [address] Kadi Lovett PA [address] [place] [address] Acute right-sided thoracic back pain (Primary Dx) Discharge Disposition: Home or Self Care Social History Tobacco Use Types Packs/Day Years Used Date Smoking Tobacco: Some Days Cigarettes Smokeless Tobacco: Never Tobacco Cessation:Ready to Q [...] Sign Reading Time Taken Comments Blood Pressure 123/74 02/02/2022 3:31 PM EST Pulse 80 02/02/2022 3:31 PM EST Temperature 37 ??C (98.6 ??F) 02/02/2022 3:31 PM EST Respiratory Rate 16 02/02/2022 3:31 PM EST Oxygen Saturation 97% 02/02/2022 3:31 PM EST Inhaled Oxygen Concentration - - Weight - - Height - - Body Mass Index - - documented in this encounter Discharge Instructions * Discharge Instructions* Kadi Lovett PA - 02/02/2022 3:59 PM EST You can continue naproxen twice daily. You can use Tylenol up to 1000 mg every 6 hours as needed. You can use the cyclobenzaprine as needed for severe pain or spasm. Do not drink alcohol, drive or work while taking that medicine. You can use [id number] icy Hot patches. He would be most helpful to apply tear back. Rest without heavy lifting for the next 48 hours. Symptoms should begin to improve. Return as needed with anything new or worse. * Attachments The following attachments cannot be sent through Care Everywhere. * Back Pain (Martiniquais) documented in this encounter Medications at Time of Discharge Medication Sig Dispensed Refills Start Date End Date escitalopram (LEXAPRO) 10 MG tablet Take 10 mg by mouth daily 02/01/2022 cyclobenzaprine (FLEXERIL) 5 MG tablet Take 1 tablet by mouth 2 times daily as needed for Muscle spasms 10 tablet 02/02/2022 02/12/2022 lisinopril (PRINIVIL;ZESTRIL) 5 MG tablet 02/01/2022 11/21/2022 documented as of this encounter Plan of Treatment Not on file documented as of this encounter Visit Diagnoses Diagnosis Acute right-sided thoracic back pain- Primary documented in this encounter Care Teams Tube And Manifold Builder Relationship Specialty Start Date End Date Lucrecia Penny APRN - GENERAL LABOR [address] [place] [id number] PCP - General 02/02/22 documented as of this encounter
--- OUTSIDE RECORDS SUMMARY | 2023-12-04 02:38 | XMS_ITS | Encounter Summary ---
Author Organization [facility] [place] [address] Phone Care Team Providers Care Breakdown Worker Name Role Phone Charli Marylin Andrade APRN Primary Care Provider [phone] Reason for Visit * Reason Comments Annual Exam New Patient Encounter Details Date Type Department Care Team (Latest Contact Info) Description 06/23/2022 3:30 PM EDT Office Visit [facility] [address] [place] [phone] Miya Garnica PA [address] [place] [address] Women's annual routine gynecological examination (Primary Dx) Social History Tobacco Use Types Packs/Day Years Used Date Smoking Tobacco: Every Day Cigarettes Vaping Smokeless Tobacco: Never Tobacco Cessation:Ready to Q uit: No; Counseling Given: Yes Alcohol Use Standard Drinks/Week Comments Yes 0 [...] Sign Reading Time Taken Comments Blood Pressure 144/94 06/23/2022 3:26 PM EDT Pulse - - Temperature 37.7 ??C (99.8 ??F) 06/23/2022 3:26 PM ED T Respiratory Rate - - Oxygen Saturation - - Inhaled Oxygen Concentration - - Weight 67.6 kg (149 lb) 06/23/2022 3:26 PM EDT Height - - Body Mass Index 26.39 12/22/2021 9:15 AM EDT documented in this encounter Progress Notes * KASSY Canseco - 06/23/2022 3:30 PM EDT New patient Annual Subjective: Patient presents with: Annual Exam New Patient ORTIZ [place] is a 36 year old female, , who presents to the office as a new patient for routine gynecological care. She is transferring her care from [place]. Records have been requested but not yet received. Hx of LEEP many years ago. Normal paps since. Will get records to confirm dates and procedure. OB History Para Term AB Living 2 2 2 0 0 2 SAB IAB Ectopic Multiple Live Births 0 0 0 0 2 Patient Active Problem List: Hypertension goal BP (blood pressure) < 130/80 Major depressive disorder Generalized anxiety disorder Past Medical History: Diagnosis Date Depression Hypertension [...] Not Currently Current Outpatient Medications Medication Sig buPROPion ER, SR, (WELLBUTRIN SR) 150 MG Oral TABLET SR 12 HR Take 1 Tablet (150 mg total) by mouthtwice a day. Start with 1 tab daily in the morning. Increase to twice daily after 3 days. Swallow whole. Do not crush or chew. escitalopram (LEXAPRO) 10 MG Oral Tab Take 1 Tablet (10 mg total) by mouth in the morning. lisinopril (PRINIVIL) 5 MG Oral Tab Take 1 Tablet (5 mg total) by mouth in the morning. Review of patient's allergies indicates: Tramadol Objective: Visit Vitals BP (!) 144/94 (Location: Right Arm, Patient Position: Sitting, Cuff Size: Regular) Temp 99.8 ??F (37.7 ??C) (Temporal) Wt 149 lb (67.6 kg) LMP 06/02/2022 (Exact Date) BMI 26.39 kg/m?? Physical Exam Constitutional: General: She is not in acute distress. Appearance: Normal appearance. Genitourinary: Vulva, bladder and rectum normal. No lesions in the vagina. Right Labia: No rash, tenderness or lesions. Left Labia: No tenderness, lesions or rash. No inguinal adenopathy present in the right or left side. No vaginal discharge, erythema, tenderness or bleeding. Right Adnexa: not tender, not full and no mass present. Left Adnexa: not tender, not full and no mass present. No cervical motion tenderness, discharge, friability, lesion or polyp. Uterus is not enlarged or tender. No uterine mass detected. No urethral prolapse, tenderness or mass present. Bladder is not tender. Pelvic exam was performed with patient in the lithotomy position. Rectum: No external hemorrhoid. Breasts: Breasts are symmetrical. Right: No swelling, mass, nipple discharge, skin change or tenderness. Left: No swelling, mass, nipple discharge, skin change or tenderness. HENT: Head: Normocephalic. Neck: Thyroid: No thyroid mass, thyromegaly or thyroid tenderness. Cardiovascular: Rate and Rhythm: Normal rate and regular rhythm. Pulses: Normal pulses. Heart sounds: Normal heart sounds. No murmur heard. Pulmonary: Effort: Pulmonary effort is normal. Breath sounds: Normal breath sounds. Chest: Chest wall: No deformity. Abdominal: General: Abdomen is flat. Palpations: Abdomen is soft. There is no mass. Tenderness: There is no abdominal tenderness. Musculoskeletal: Cervical back: Normal range of motion and neck supple. Lymphadenopathy: Cervical: No cervical adenopathy. Right cervical: No superficial, deep or posterior cervical adenopathy. Left cervical: No superficial, deep or posterior cervical adenopathy. Upper Body: Right upper body: No axillary adenopathy. Left upper body: No axillary adenopathy. Lower Body: No right inguinal adenopathy. No left inguinal adenopathy. Neurological: Mental Status: She is alert. Skin: General: Skin is warm and dry. Psychiatric: Mood and Affect: Mood normal. Vitals and nursing note reviewed. No results found for this or any previous visit (from the past 8 hour(s)). Assessment/Plan: Diagnoses and all orders for this visit: Women's annual routine gynecological examination (Primary) Assessment & Plan: Patient welcomed to [facility]. History reviewed and updated. Preventative measures discussed. SBE advised Last Pap:05/13/20: NILM/-HPV. Due 2023. Last Mammogram: NA, due to start at 38. Last Colonoscopy: NA, due to start at 43. Contraception: Abstinence. RTC 1 year for annual exam or sooner with acute concerns. BP elevated, is following up with her PCP next week. documented in this encounter Miscellaneous Notes * Assessment & Plan Note - KASSY Canseco - 06/23/2022 1:21 PM EDTAssociated Problem(s): Women's annual routine gynecological examination Patient welcomed to [facility]. History reviewed and updated. Preventative measures discussed. SBE advised Last Pap:05/13/20: NILM/-HPV. Due 2023. Last Mammogram: NA, due to start at 38. Last Colonoscopy: NA, due to start at 43. Contraception: Abstinence. RTC 1 year for annual exam or sooner with acute concerns. BP elevated, is following up with her PCP next week. documented in this encounter Plan of Treatment Not on file documented as of this encounter Procedures Procedure Name Priority Date/Time Associated Diagnosis Comments PAP SMEAR Routine 05/13/2020 12:00 AM EST documented in this encounter Results * Pap Smear (05/13/2020 12:00 AM EST) Provider Generic LABORATORY Performing Organization Address City/State/[facility] Co de Phone Number [facility] [address] [phone] documented in this encounter Visit Diagnoses Diagnosis Women's annual routine gynecological examination- Primary documented in this encounter Care Teams Breakdown Worker Relationship Specialty Start Date End Date Marylin [place] [address] PCP - General Nurse Practitioner - Family Medicine 06/23/22 06/27/22 documented as of this encounter
--- OUTSIDE RECORDS SUMMARY | 2023-12-04 02:38 | XMS_ITS | Encounter Summary ---
Author Organization [facility] Address [address] [place] [address] Care Team Providers Care Hand Molder And Caster Name Role Phone Unavailable Primary Care Provider Unavailabl e Encounter Details Date Type Department Care Team (Latest Contact Info) Description 12/08/2021 1:11 PM EDT - 12/08/2021 2:22 PM EDT Hospital Encounter [facility] [address] [place] [address] Jarred Beckwith MD [address] [place] [address] Acute pharyngitis, unspecified; Contact with and (suspected) exposure to covid-19; Personal history of COVID-19 Social History Tobacco Use Types Packs/Day Years Used Date Smoking Tobacco: Never Assessed Sex and Gender Information Value Date Recorded Sex Assigned at Not on file Gender Identity Not on file Sexual Orientation Not on file documented as of this encounter Last Filed Vital Signs Vital Sign Reading Time Taken Comments Blood Pressure 154/112 12/08/2021 1:12 PM EDT Pulse 60 12/08/2021 1:12 PM EDT Temperature - - Respiratory Rate - - Oxygen Saturation - - Inhaled Oxygen Concentration - - Weight - - Height - - Body Mass Index - - documented in this encounter Plan of Treatment Not on file documented as of this encounter Procedures Procedure Name Priority Date/Time Associated Diagnosis Comments CULTURE, STREP THROAT Routine 12/08/2021 2:21 PM EDT AMB POC COVID-19 COV Routine 12/08/2021 1:57 PM EDT POC GROUP A STREP Routine 12/08/2021 1:4 1 PM EDT documented in this encounter Results * CULTURE, STREP THROAT (12/08/2021 2:21 PM EDT) Special Requests NO SPECIAL REQUESTS 12/08/2021 2:11 PM EDT [facility] Culture NO PATHOGENIC STREPTOCOCCI ISOLATED AT 48 HOURS 12/10/2021 11:38 AM EDT [facility] Throat swab SPECIMEN FROM THROAT / Unknown 12/08/2021 2:21 PM EDT 12/08/2021 8:06 PM EDT Jarred Beckwith MD CHEMISTRY ORDERABLES Performing Organization Address City/[facility]/ZIP Co de Phone Number [facility] Dr. Lanny Michaels [address] [place], [place] [id number] * AMB POC COVID-19 COV (12/08/2021 1:57 PM EDT) Valid Internal Control, POC Yes 12/08/2021 2:12 PM EDT [employer] K[place] LOT NO. [id number] 12/08/2021 2:12 PM EDT [facility] Lot/Kit date: 03/18/22 12/08/2021 2:12 PM EDT [facility] COVID-19 POC Negative Not Detected (Negative) 12/08/2021 2:12 PM EDT [employer] [employer] Vendor and kit name [id number] COVID-19 Ag CARD - This test is an antigen test (this test has been authorized under Emergency Use Authorization) 12/08/2021 2:12 PM EDT [facility] Nasal swab (Nasal Swab) 12/08/2021 1:57 PM EDT Jarred Beckwith MD POINT OF CARE TEST O RDERABLES [employer] * POC GROUP A STREP (12/08/2021 1:41 PM EDT) GROUP A STREP SCREEN: Negative Negative 12/08/2021 1:46 PM EDT [facility] INTERNAL CONTROL LINE: Yes 12/08/2021 1:46 PM EDT [facility] Internal neg ctrl. Yes 12/08/2021 1:46 PM EDT [facility] KIT LOT NO.: [id number] NA 12/08/2021 1:46 PM EDT [facility] Throat swab 12/08/2021 1:41 PM EDT Jarred Beckwith MD POINT OF CARE TEST O RDERAANAND [facility] documented in this encounter Visit Diagnoses Diagnosis Acute pharyngitis, unspecified Contact with and (suspected) exposure to covid-19 Personal history of COVID-19 documented in this encounter
--- OUTSIDE RECORDS SUMMARY | 2023-12-04 02:38 | XMS_ITS | Referral Summary ---
Author Organization [facility] Address [address] [place] [address] Phone Care Team Providers Care Electrolysis Investigator Name Role Phone JesusMaggie mckenzie Lupe ZHENG Primary Care Provider [phone] Allergies Active Allergy Reactions Criticality Noted Date Comments Tramadol 12/22/2021 Medications Medication Sig Dispensed Refills Start Date End Date Status simvastatin (ZOCOR) 10 MG Oral Tab Take 1 Tablet (10 mg total) by mouth once daily every evening. 90 Tablet 3 08/17/2022 Active lisinopril (PRINIVIL) 10 MG Oral TabIndications:Hypert ension goal BP (blood pressure) < 130/80 Take 1 Tablet (10 mg total) by mouth twice a day. 60 Tablet 03/01/2023 Active Active Problems Problem Noted Date Diagnosed Date Mixed hyperlipidemia 08/17/2022 Last Assessment & Plan: Discussed with patient concerns regarding high blood pressure, hyperlipidemia and smoking history she is at an increased risk for cardiovascular disease, calculated risk is elevated. She is agreeable to start statin at low intensity and continue with heart healthy dietary changes and lifestyle changes. All questions answered we will follow-up in 6 months with labs. Smoking 06/28/2022 Last Assessment & Plan: Encouraged to quit smoking declines intervention at this time Preventive measure 06/28/2022 Last Assessment & Plan: Pap smear up-to-date 2020, not due. Patient just had breast and pelvic exam. Declines today. Tetanus vaccine up-to-date, declines flu, declines further vaccines. Women's annual routine gynecological examination 06/22/2022 Last Assessment & Plan: Patient welcomed to [facility]. History reviewed and updated. Preventative measures discussed. SBE advised Last Pap:05/13/20: NILM/-HPV. Due 2023. Last Mammogram: NA, due to start at 38. Last Colonoscopy: NA, due to start at 43. Contraception: Abstinence. RTC 1 year for annual exam or sooner with acute concerns. BP elevated, is following up with her PCP next week. Hypertension goal BP (blood pressure) < 130/80 1 04/03/2021 Last Assessment & Plan: Blood pressure at goal, will continue lisinopril 10 mg twice daily and follow-up if not well controlled and in 6 months. Discussed normal BP parameters and heart healthy diet. Decrease intake of high sodium foods such as frozen, processed and canned. Include 20 mins daily activity as tolerated for best heart health at least 5x weekly. Monitor BP daily and report readings consistently over 140/90 to provider. Major depressive disorder 02/01/2022 Overview: States has both depression and anxiety. Last Assessment & Plan: Stable at this time, no SI or HI. Continue to monitor Generalized anxiety disorder 02/01/2022 Last Assessment & Plan: Denies suicidal/homocidal ideations. Continue with plan of care to include counseling and psych services and follow up as needed. Stable at this time. Patient understands red flag warnings and when to call for help, avoiding isolation and nature therapy will help with symptom management. Immunizations Name Administration Dates Next Due COVID-19 (Unspecified) 11/19/2021 Tdap 09/15/2020 Social History Tobacco Use Types Packs/Day Years [...] on file Sexual Orientation Not on file Last Filed Vital Signs Vital Sign Reading Time Taken Comments Blood Pressure 118/82 08/17/2022 10:09 AM EDT Pulse 69 08/17/2022 10:09 AM EDT Temperature 36.5 ??C (97.7 ??F) 08/17/2022 10:09 AM E DT Respiratory Rate 18 08/17/2022 10:09 AM EDT Oxygen Saturation 98% 08/17/2022 10:09 AM EDT Inhaled Oxygen Concentration - - Weight 68.5 kg (151 lb) 08/17/2022 10:09 AM EDT Height 161.5 cm (5' 3.6) 06/28/2022 9:19 AM EDT Body Mass Index 26.25 06/28/2022 9:19 AM EDT Plan of Treatment Not on file Procedures Procedure Name Priority Date/Time Associated Diagnosis Comments COMPREHENSIVE METABOLIC PANEL Routine 06/29/2022 8:31 AM EDT Preventive measure PAP SMEAR Routine 05/13/2020 12:00 AM EST from Last 3 Months or Most Recently Relevant to Health Maintenance Results * (ABNORMAL) Comprehensive Metabolic Panel (06/29/2022 8:31 AM EDT) Sodium 142 136 - 145 mmol/L LAB SEROLOGY [facility] METHOD 06/29/2022 2:15 PM EDT [facility] Potassium 3.8 3.5 - 5.1 mmol/L LAB SEROLOGY ATELLICA METHOD 06/29/2022 2:15 PM EDT [facility] Chloride 110(H) 98 - 107 mmol/L LAB SEROLOGY [facility]ELLICA METHOD 06/29/2022 2:15 PM EDT [facility] Carbon Dioxide 23 20 - 31 mmol/L LAB SEROLOGY [facility]LLICA METHOD 06/29/2022 2:15 PM EDT [facility] Anion Gap 9 5 - 15 mmol/L LAB SEROLOGY [facility] METHOD 06/29/2022 2:15 PM EDT [facility] Glucose 93 74 - 100 mg/dL LAB SEROLOGY [facility]ELLICA METHOD 06/29/2022 2:15 PM EDT [facility] BUN 13 9 - 23 mg/dL LAB SEROLOGY [facility]ELLICA METHOD 06/29/2022 2:15 PM EDT [facility] Creatinine 0.82(H) 0.50 - 0.80 mg/dL LAB SEROLOGY ATELLICA METHOD 06/29/2022 2:15 PM EDT [facility] BUN/Creatinine Ratio 15.85 LAB SEROLOGY [facility]ELL[facility] METHOD 06/29/2022 2:15 PM EDT [facility] Calcium 8.9 8.3 - 10.6 mg/dL LAB SEROLOGY ATELLICA METHOD 06/29/2022 2:15 PM EDT [facility] Protein, Total 6.4 5.7 - 8.2 g/dL LAB SEROLOGY ATELLICA METHOD 06/29/2022 2:15 PM EDT [facility] Albumin 4.2 3.2 - 4.8 g/dL LAB SEROLOGY ATELLICA METHOD 06/29/2022 2:15 PM EDT [facility] AST 19 <=34 U/L LAB SEROLOGY [facility]ELLICA METHOD 06/29/2022 2:15 PM EDT [facility] ALT 12 10 - 49 U/L LAB SEROLOGY [facility]ELL[facility] METHOD 06/29/2022 2:15 PM EDT [facility] ALK Phos 66 46 - 116 U/L LAB SEROLOGY [facility]ELLICA METHOD 06/29/2022 2:15 PM EDT [facility] Bilirubin, Total 0.5 0.3 - 1.2 mg/dL LAB SEROLOGY ATELLICA METHOD 06/29/2022 2:15 PM EDT [facility] Globulin 2.2 g/dL LAB SEROLOGY ATELLICA METHOD 06/29/2022 2:15 PM EDT [facility] Albumin Globulin Ratio 1.91 LAB SEROLOGY ATELLICA METHOD 06/29/2022 2:15 PM EDT [facility] eGFR >90 >=60 mL/min/1. 73m*2 LAB SEROLOGY [facility]ELLICA METHOD 06/29/2022 2:15 PM EDT [facility] Blood ENTIRE ANTECUBITAL VEIN / Unknown Venipuncture / Unknown 06/29/2022 8:31 AM EDT 06/29/2022 8:31 AM EDT Emily Bowman WHITE SUGAR PAN TANK OPERATOR LAB BLOOD ORDERABL ES [facility] [address] [place] [address] * Pap Smear (05/13/2020 12:00 AM EST) Provider Generic LABORATORY [facility] [address] [place] [address], [facility] from Last 3 Months or Most Recently Relevant to Health Maintenance Care Teams Electrolysis Investigator Relationship Specialty Start Date End Date Maggie Alonzo APRN [address] [place] [address] PCP - General Nurse Practitioner - Family Medicine 06/13/23
--- OUTSIDE RECORDS SUMMARY | 2023-12-04 02:38 | XMS_ITS | Encounter Summary ---
Author Organization [facility] Address [address] [place] [address] Phone Care Team Providers Care Credit Processor Name Role Phone Emily Bowman APRN Primary Care Provider [phone] Encounter Details Date Type Department Care Team (Latest Contact Info) Description 06/28/2022 Travel Social History Tobacco Use Types Packs/Day [...] on filedocumented in this encounter Care Teams Credit Processor Relationship Specialty Start Date End Date Emily Bowman APRN PCP - General Nurse Practitioner - Family Medicine 06/28/22 04/27/23 documented as of this encounter
--- OUTSIDE RECORDS SUMMARY | 2023-12-04 02:38 | XMS_ITS | Encounter Summary ---
Author Organization [facility] [place] [address] [place] [address] Phone Care Team Providers Care Crutch Maker Name Role Phone Pcp, No MD Primary Care Provider Unavailabl e Encounter Details Date Type Department Care Team (Late st Contact Info) Description 02/25/2022 Nurse Triage [facility] at [place], [facility]. [address], [address] [place] [address] Adela Meeks RN Social History [...] encounter Miscellaneous Notes * Telephone Encounter - Adela Meeks RN - 02/25/2022 3:08 PM EST Patient walked into clinic, reported she had racing heart and wanted her heart rate checked. Upon entering room, she was coughing. Asked patient when cough started she said yesterday. Patient reportsshe was getting ready for work and she started feeling her heart racing in her neck, she is having chest pressure and pain. Unable to safely determine if chest pain is the result of coughing. Patient temp 101.8f, BP 156/84, pulse fluctuating between 103 - 128. Patient has a cough, some shortness of breath, chest pressure. Told patient we can complete covid test in office but this does notaddress patient reports of chest pressure and reports of racing heart which needs more urgent care.Patient agreed to be checked out at urgent care/ER. Provided patient verbal information and instruct ion. Patient plans to drive herself to urgent care. documented in this encounter Plan of Treatment Not on file documented as of this encounter Visit Diagnoses Not on filedocumented in this encounter Care Teams Crutch Maker Relationship Specialty Start Date End Date Pcp, Michelle, PCP - General Generic/Test/No PCP 12/14/21 06/22/22 documented as of this encounter
--- OUTSIDE RECORDS SUMMARY | 2023-12-04 02:38 | XMS_ITS | Clinical Summary ---
Author Organization [facility] Address [address] [place] [address] Phone Care Team Providers Care Car Sales Consultant Name Role Phone None Primary Care Provider Unavailabl e Allergies No known active allergies Medications Medication Sig Dispensed Refills Start Date End Date Status escitalopram oxalate (Lexapro) 20 mg tablet Take 20 mg by mouth daily. Active Social History Tobacco Use Types Packs/Day Years Used Date Smoking Tobacco: Never Assessed Sex and Gender Information Value Date Recorded Sex Assigned at Not on file Gender Identity Not on file Sexual Orientation Not on file Last Filed Vital Signs Vital Sign Reading Time Taken Comments Blood Pressure 154/112 12/08/2021 1:12 PM EDT Pulse 60 12/08/2021 1:12 PM EDT Temperature 36.6 ??C (97.9 ??F) 12/08/2021 2:16 PM ED T Respiratory Rate 16 12/08/2021 1:12 PM EDT Oxygen Saturation 97% 12/08/2021 1:12 PM EDT Inhaled Oxygen Concentration - - Weight - - Height - - Body Mass Index - - Plan of Treatment Not on file Care Teams Car Sales Consultant Relationship Specialty Start Date End Date None None ([phone]) Patient stated that they have no PCP PCP - General 12/08/21
--- OUTSIDE RECORDS SUMMARY | 2023-12-04 02:38 | XMS_ITS | Encounter Summary ---
Author Organization [facility] [place] [address] [place] [address] Phone Care Team Providers Care Ladder Operator Name Role Phone PcpMichelle MD Primary Care Provider Unavailabl e Reason for Visit * Reason Onset Date Comments New Patient 04/13/2022 NO SHOWED DIRECTOR OF CATH LAB A PTDIRECTOR OF CATH LAB appointment with [facility] on 05/11/2022 at 1:45 pm Encounter Details Date Type Department Care Team (Late st Contact Info) Description 04/13/2022 Telephone Primary Care of [address] [address] PcpMichelle MD New Patient (NO SHOWED DIRECTOR OF CATH LAB APTDIRECTOR OF CATH LAB appointment with [facility] on 05/11/2022 at 1:45 pm ) Social History Tobacco Use Types Packs/Day [...] * Telephone Encounter - Emily Means - 05/11/2022 2:26 PM EST NO SHOWED DIRECTOR OF CATH LAB APT ON 05/11/22 * Telephone Encounter - Emily Means - 04/19/2022 3:23 PM EST Some records received via fax from [facility], scanned to patients chart * Telephone Encounter - Emily Hoyt - 04/16/2022 3:21 PM EST Rec'vd recs from PCP in [place], [place] Scanned, indexed & placed in [facility] blue folder for review Emily Hoyt * Telephone Encounter - Chip Gimenez - 04/13/2022 1:36 PM EST DIRECTOR OF CATH LAB paper work given to patient for completion. Release of Records faxed to [facility]. Scanned Former patient of Health and Resource through [employer]. Chip Gimenez documented in this encounter Plan of Treatment Not on file documented as of this encounter Visit Diagnoses Not on filedocumented in this encounter Care Teams Ladder Operator Relationship Specialty Start Date End Date Pcp, Michelle, PCP - General Generic/Test/No PCP 12/14/21 06/22/22 documented as of this encounter
--- OUTSIDE RECORDS SUMMARY | 2023-12-04 02:38 | XMS_ITS | Encounter Summary ---
Author Organization [facility] [place] [address] Phone Care Team Providers Care Line Helper Name Role Phone Emily Bowman APRN Primary Care Provider [phone]- [phone] Reason for Visit * Reason Comments Follow-Up B/p check and lab re view Encounter Details Date Type Department Care Team (Late st Contact Info) Description 08/17/2022 10:15 AM EDT Office Visit Primary Care of [address] [address] Emily Bowman, NORM [address] [place], [place] [id number] Mixed hyperlipidemia (Primary Dx); Hypertension goal BP (blood pressure) < 130/80 Social History Tobacco Use Types Packs/Day Years [...] (151 lb) 08/17/2022 10:09 AM EDT Height - - Body Mass Index 26.25 06/28/2022 9:19 AM EDT documented in this encounter Patient Instructions * Attachments The following attachments cannot be sent through Care Everywhere. * Hyperlipidemia (Burmese) documented in this encounter Progress Notes * Nyasia Hart LPN - 08/17/2022 10:15 AM EDT Patient name and verified Communication Assessment: What language do you feel most comfortable speaking with your healthcare provider? Primary Rip And Groove Machine Operator Needed Special Considerations Burmese No Being seen today for Patient presents with: Follow-Up: B/p check and lab review Vitals taken Reviewed: Has patient been seen by or been receiving care from a specialist? no Since last visit, has patient been hospitalized? no Refills needed? no Social History Tobacco Use Smoking status: Every Day Types: Cigarettes, Vaping Smokeless tobacco: Never Ready to quit: Not Answered Counseling given: Not Answered * Emily Bowman APRN - 08/17/2022 10:15 AM EDT Subjective: Tsering [place] is a 36 year old female. Patient presents with: Follow-Up: B/p check and lab review HPI Patient is a 36-year-old female 4 para 2. Seen today to follow up of BP check and lab review. Since last visit she is taking lisinopril with good resolve and normal readings of HTN. Labs reviewed and reveal HLD. She is agreeable to care. She is up-to-date with breast exam and Pap smear done had a recent SKATING RINK ICE MAKER visit last week. She has a history of hypertension uncontrolled prior to lisinopril. Patient works full-time in a [employer] business, she is a positive smoker, not inclined to quit at this time. No excessive alcohol use, no drugs. Has an incredibly stressful lifestyle taking care of her 19-year-old daughter, 20-year-old son who has a history of drug abuse, also going through legal ba ttles with an ex regarding financial concerns. She plans to move to [place] this year. . She has had a COVID-vaccine declines further no flu vaccines, declines STD testing at this time. She has no chest pain, no dizziness, no acute shortness of breath. States I think I am always shortof breath because of smoke. No history of asthma. [...] allergies indicates: Tramadol Objective: Visit Vitals BP 118/82 (Location: Right Arm, Patient Position: Sitting, Cuff Size: Regular) Pulse 69 Temp 97.7 ??F (36.5 ??C) (Temporal) Resp 18 Wt 151 lb (68.5 kg) SpO2 98% BMI 26.25 kg/m?? Physical Exam Vitals and nursing note reviewed. Constitutional: General: She is not in acute distress. Appearance: Normal appearance. She is normal weight. She is not toxic-appearing. HENT: Head: Normocephalic and atraumatic. Nose: Nose normal. Eyes: General: No scleral icterus. Conjunctiva/sclera: Conjunctivae normal. Cardiovascular: Rate and Rhythm: Normal rate. Pulses: Normal pulses. Heart sounds: No murmur heard. Pulmonary: Effort: Pulmonary effort is normal. No respiratory distress. Musculoskeletal: General: Normal range of motion. Lymphadenopathy: Cervical: No cervical adenopathy. Skin: General: Skin is dry. Coloration: Skin is not pale. Neurological: General: No focal deficit present. Mental Status: She is alert and oriented to person, place, and time. Mental status is at baseline. Psychiatric: Mood and Affect: Mood normal. Behavior: Behavior normal. Thought Content: Thought content normal. Judgment: Judgment normal. Assessment/Plan: Diagnoses and all orders for this visit: Mixed hyperlipidemia (Primary) Assessment & Plan: Discussed with patient concerns regarding high blood pressure, hyperlipidemia and smoking history she is at an increased risk for cardiovascular disease, calculated risk is elevated. She is agreeableto start statin at low intensity and continue with heart healthy dietary changes and lifestyle changes. All questions answered we will follow-up in 6 months with labs. Orders: - Comprehensive Metabolic Panel Hypertension goal BP (blood pressure) < 130/80 Assessment & Plan: Blood pressure at goal, [...] report readings consistently over 140/90 to provider. Orders: - Comprehensive Metabolic Panel Other orders - simvastatin (ZOCOR) 10 MG Oral Tab Physician time: in preparation for this visit, I personally reviewed the prior medical records including recent provider documentation, diagnostics and ER records, and the patient's prior medical andsurgical history. I have spent a total of 30 minutes today to a combination of [id number] time with the patient as well in preparation and documentation of the visit. documented in this encounter Miscellaneous Notes * Assessment & Plan Note - Emily Bowman APRN - 08/17/2022 10:36 AM EDT Associated Problem(s): Mixed hyperlipidemia Discussed with patient concerns regarding high blood pressure, hyperlipidemia and smoking history she is at an increased risk for cardiovascular disease, calculated risk is elevated. She is agreeableto start statin at low intensity and continue with heart healthy dietary changes and lifestyle changes. All questions answered we will follow-up in 6 months with labs. * Assessment & Plan Note - Emily Bowman APRN - 08/17/2022 10:35 AM EDT Associated Problem(s): Hypertension goal BP (blood pressure) < 130/80 Blood pressure at goal, will continue lisinopril [...] report readings consistently over 140/90 to provider. documented in this encounter Plan of Treatment Not on file documented as of this encounter Visit Diagnoses Diagnosis Mixed hyperlipidemia- Primary Hypertension goal BP (blood pressure) < 130/80 Unspecified essential hypertension documented in this encounter Care Teams Line Helper Relationship Specialty Start Date End Date Emily Bowman APRN PCP - General Nurse Practitioner - Family Medicine 06/28/22 04/27/23 documented as of this encounter
--- OUTSIDE RECORDS SUMMARY | 2023-12-04 02:38 | XMS_ITS | Encounter Summary ---
Author Organization [facility] [place] [address] Phone Care Team Providers Care Warp Yarn Sorter Name Role Phone Pcp, No MD Primary Care Provider Unavailabl e Encounter Details Date Type Department Care Team (Late st Contact Info) Description 02/02/2022 Nurse Triage Health [facility] Resource Center at [place], [facility]. [address], [address] [place] [address] Adela Meeks RN Social History [...] Encounter - Adela Meeks RN - 02/02/2022 2:46 PM EST Patient called requesting to be seen by provider today. Reports she was out walking her dog, dog tugged real hard and she fell. Reports sharp pain with deep breathing, difficulty breathing, no shortness of breath, rib cage area hurts. Instructed patient to go to urgent care for an evaluation. Patient agreed with plan documented in this encounter Plan of Treatment Not on file documented as of this encounter Visit Diagnoses Not on filedocumented in this encounter Care Teams Warp Yarn Sorter Relationship Specialty Start Date End Date Pcp, No, MD PCP - General Generic/Test/No PCP 12/14/21 06/22/22 documented as of this encounter
--- OUTSIDE RECORDS SUMMARY | 2023-12-04 02:38 | XMS_ITS | Encounter Summary ---
Author Organization [facility] Address [address] [place] [address] Care Team Providers Care Soldering Machine Operator Automatic Name Role Phone Lucrecia Penny APRN - TIP BANDER Primary Care Provider [phone] Reason for Visit * Reason Comments Abdominal Pain Pt reports epigastri c pain that radiates into L shoulder. Pt reports this started yesterday morning. Pt denies blood in vomit. No cardiac hx Encounter Details Date Type Department Care Team (Late st Contact Info) Description 12/27/2022 4:01 PM EDT - 12/27/2022 6:05 PM EDT Emergency [facility] EM[facility]PART[facility] [address] [place] [phone] Elvie Chaudhari PA [address] [place] [address] Abdominal pain, epigastric (Primary Dx) Discharge Disposition: Home or Self Care Social History Tobacco Use Types Packs/Day Years Used Date Smoking Tobacco: Some Days Cigarettes Smokeless Tobacco: Never Alcohol Use Standard Drinks/Week Comments Not Currently 0 (1 standard drink = 0.6 oz pur e alcohol) AUDIT-C Answer Date Recorded Q1: How often do you have a drink containing alc ohol? Monthly or less 12/27/2022 Q2: How many drinks containi ng alcohol do you have on a typical day when you are drinking? 3 or 4 12/27/2022 Q3: How often do you have si x or more drinks on one occasion? Never 12/27/2022 Sex and Gender Information Value Date Recorded Sex Assigned at Not on file Gender Identity Not on file Sexual Orientation Not on file documented as of this encounter Last Filed Vital Signs Vital Sign Reading Time Taken Comments Blood Pressure 130/87 12/27/2022 1:16 PM EDT Pulse 83 12/27/2022 1:16 PM EDT Temperature 36.1 ??C (97 ??F) 12/27/2022 1:16 PM EDT Respiratory Rate 17 12/27/2022 1:16 PM EDT Oxygen Saturation 98% 12/27/2022 1:16 PM EDT Inhaled Oxygen Concentration - - Weight 73.5 kg (162 lb) 12/27/2022 1:16 PM EDT Height 160 cm (5' 3) 12/27/2022 1:16 PM EDT Body Mass Index 28.7 12/27/2022 1:16 PM EDT documented in this encounter Discharge Instructions * Discharge Instructions* Elvie Chaudhari PA - 12/27/2022 5:33 PM EDT As discussed, please start taking Pepcid twice a day for the next 1-2 weeks and avoid eating anything that might be spicy or acidic that may increase your heartburn/GERD symptoms. As discussed, there was concern for a possible ulcer especially if you are having pain after meals.If your pain persists, you can consider starting Carafate 1 g as prescribed. This medication typically helps to treat this symptoms of and treat the ulcer. As discussed, her symptoms are likely related to gastritis however there appears to be some gastricwall thickening on your CT scan, if your symptoms persist please make sure that you follow-up with your PCP/GI for further management. documented in this encounter Medications at Time of Discharge Medication Sig Dispensed Refills Start Date End Date sucralfate (CARAFATE) 1 GM tablet Take 1 tablet by mouth 4 times daily 120 tablet 12/27/2022 simvastatin (ZOCOR) 10 MG tablet 09/19/2022 lisinopril (PRINIVIL;ZESTRIL) 10 MG tablet 09/20/2022 documented as of this encounter Plan of Treatment Not on file documented as of this encounter Procedures Procedure Name Priority Date/Time Associated Diagnosis Comments CT ABDOMEN PELVIS W IV CONTRAST STAT 12/27/2022 4:42 PM EDT CBC WITH AUTO DIFFERENTIAL STAT 12/27/2022 1:30 PM EDT TROPONIN STAT 12/27/2022 1:30 PM EDT LIPASE STAT 12/27/2022 1:30 PM EDT COMPREHENSIVE METABOLIC PANEL STAT 12/27/2022 1:30 PM EDT EKG 12-LEAD STAT 12/27/2022 documented in this encounter Results * CT ABDOMEN PELVIS W IV CONTRAST Additional Contrast? Radiologist Recommendation (12/27/2022 4:42 PMEDT) Anatomical Region Laterality Modality Abdomen, Pelvis, Hip Computed To mography 12/27/2022 4:54 PM EDT Impressions 12/27/2022 5:01 PM EDT Suggestion of significant gastric antral wall thickening. GI consultation can be considered. Narrative 12/27/2022 5:01 PM EDT EXAM: CT ABD PELV W CONT HISTORY: epigastric/luq pain radiating to L shoulder COMPARISON: None. TECHNIQUE: CT imaging of the abdomen and pelvis is performed with intravenous contrast. Images are reviewed with lung, soft tissue, and bone window settings. Images are reviewed in the coronal, axial, and sagittal planes. ??This CT exam was performed using one or more of the following dose reduction techniques: Automated exposure control, adjustment of the mA and/or kV according to patient size, or use of iterative reconstruction technique. FINDINGS: Lower thorax: Unremarkable CT ABDOMEN: Liver: Unremarkable Gallbladder and biliary system: Unremarkable Spleen: Normal sized Pancreas: The pancreas and pancreatic duct are normal. Adrenal glands: No mass bilaterally. Kidneys and ureters: Unremarkable bilaterally. Appendix: Normal appendix Stomach and bowel: There is suggestion of gastric antral wall thickening. The stomach is significantly distended by fluid. There is significant amount of feces in the colon. Peritoneal cavity: No free air or ascites. Lymph nodes: No lymphadenopathy. Vasculature: Normal caliber. Osseous structures: Normal development, no acute process. Extra abdominal soft tissues: Unremarkable. CT PELVIS: Reproductive: Unremarkable. Rectosigmoid: Unremarkable. Bladder and distal ureters: Unremarkable. ??No hydroureter. Extra pelvic soft tissues: No hernia. Procedure Note Len Doty MD - 12/27/2022 EXAM: CT ABD PELV W CONT HISTORY: epigastric/luq pain radiating to L shoulder COMPARISON: None. TECHNIQUE: CT imaging of the abdomen and pelvis is performed with intravenouscontrast. Images are reviewed with lung, soft tissue, and bone windowsettings. Images are reviewed in the coronal, axial, and sagittal planes.This CT exam was performed using one or more of the following dosereduction techniques: Automated exposure control, adjustment of the mAand/or kV according to patient size, or use of iterative reconstructiontechnique. FINDINGS: Lower thorax: Unremarkable CT ABDOMEN: Liver: Unremarkable Gallbladder and biliary system: Unremarkable Spleen: Normal sized Pancreas: The pancreas and pancreatic duct are normal. Adrenal glands: No mass bilaterally. Kidneys and ureters: Unremarkable bilaterally. Appendix: Normal appendix Stomach and bowel: There is suggestion of gastric antral wall thickening.The stomach is significantly distended by fluid. There is significantamount of feces in the colon. Peritoneal cavity: No free air or ascites. Lymph nodes: No lymphadenopathy. Vasculature: Normal caliber. Osseous structures: Normal development, no acute process. Extra abdominal soft tissues: Unremarkable. CT PELVIS: Reproductive: Unremarkable. Rectosigmoid: Unremarkable. Bladder and distal ureters: Unremarkable. No hydroureter. Extra pelvic soft tissues: No hernia. IMPRESSION: Suggestion of significant gastric antral wall thickening. GI consultationcan be considered. Elvie [facility] ORDERABLES * Troponin (12/27/2022 1:30 PM EDT) Troponin T <6.0 0 - 14.0 ng/L 12/27/2022 3:25 PM EDT [facility] Comment: The presence of detectable troponins above the reference range indicates myocardial injury. While troponins are cardiac specific, they are not specific for [place] and detectable levels may be seen in other disease states that involve the heart muscle (e.g. arrythmia, acute heart failure, hypertensive crisis, myocarditis pericarditis, pulmonary embolism and [place]o cardiomyopathy). ACC/ESC/AHA guidelines and the [place] Definition of [place] recommend serial sampling with a rise or fall in troponin to distinquish between acute and chronic elevations. Results should be interpreted in conjunction with clinical presentation. PLASMA SPECIMEN / Unknown 12/27/2022 1:30 PM EDT 12/27/2022 3:00 PM EDT Len Swenson DO CHEMISTRY ORDERABLES Performing Organization Address [facility]/ZIP Co de Phone Number [facility] Dr. Lanny Michaels [address] [place] [address] * Lipase (12/27/2022 1:30 PM EDT) Lipase 22 13 - 60 U/L 12/27/2022 3:30 PM EDT [facility] Blood SERUM OR PLASMA SPECIMEN / Unknown 12/27/2022 1:30 PM EDT 12/27/2022 3:00 PM EDT Len Swenson DO CHEMISTRY ORDERABLES Performing Organization Address [facility] Co de Phone Number [facility] Dr. Lanny Michaels [address] [place] [phone] * (ABNORMAL) CBC with Auto Differential (12/27/2022 1:30 PM EDT) WBC 10.8(H) 4.0 - 10.0 K/uL 12/27/2022 3:03 PM EDT [facility] RBC 4.35 3.93 - 5.22 M/uL 12/27/2022 3:03 PM EDT [facility] Hemoglobin 13.8 11.8 - 14.8 g/dL 12/27/2022 3:03 PM EDT [facility] Hematocrit 39.4 36.0 - 45.0 % 12/27/2022 3:03 PM EDT [facility] MCV 90.6 80.0 - 95.0 FL 12/27/2022 3:03 PM EDT [facility] MCH 31.7 25.6 - 32.2 PG 12/27/2022 3:03 PM EDT [facility] MCHC 35.0 32.2 - 35.5 g/dL 12/27/2022 3:03 PM EDT [facility] RDW 11.9 11.6 - 14.4 % 12/27/2022 3:03 PM EDT [facility] Platelets 312 150 - 400 K/uL 12/27/2022 3:03 PM EDT [facility] MPV 9.2(L) 9.4 - 12.4 FL 12/27/2022 3:03 PM EDT [facility] Nucleated RBCs 0.0 0 - 0.02 PER 100 WBC 12/27/2022 3:03 PM EDT [facility] nRBC 0.00 K/uL 12/27/2022 3:03 PM EDT [facility] Seg Neutrophils 62 % 3:03 PM EDT [facility] Lymphocytes 27 % 12/27/2022 3:03 PM EDT [facility] Monocytes % 8 % 12/27/2022 3:03 PM EDT [facility] Eosinophils % 2 % 12/27/2022 3:03 PM EDT [facility] Basophils % 1 % 12/27/2022 3:03 PM EDT [facility] Immature Granulocytes % 0 % 12/27/2022 3:03 PM EDT [facility] Neutrophils Absolute 6.8(H) 1.6 - 6.1 K/UL 12/27/2022 3:03 PM EDT [facility] Lymphocytes Absolute 2.9 1.2 - 3.7 K/UL 12/27/2022 3:03 PM EDT [facility] Monocytes Absolute 0.9(H) 0.2 - 0.8 K/UL 12/27/2022 3:03 PM EDT [facility] Eosinophils Absolute 0.2 0.0 - 0.5 K/UL 12/27/2022 3:03 PM EDT [facility] Basophils Absolute 0.1 0.0 - 0.1 K/UL 12/27/2022 3:03 PM EDT [facility] Immature Granulocytes Absolute 0.0 0.00 - 0.03 K/UL 12/27/2022 3:03 PM EDT [facility] Differential Type AUTOMATED 12/27/2022 3:03 PM EDT [facility] Blood WHOLE BLOOD SPECIMEN / Unknown 12/27/2022 1:30 PM EDT 12/27/2022 3:00 PM EDT Len Swenson DO HEMATOLOGY ORDERABLE [facility] Dr[facility] Lanny Michaels [address] [place] [phone] * Comprehensive Metabolic Panel (12/27/2022 1:30 PM EDT) Sodium 140 136 - 145 mmol/L 12/27/2022 3:30 PM EDT [facility] Potassium 4.0 3.5 - 5.1 mmol/L 12/27/2022 3:30 PM EDT [facility] Chloride 104 98 - 107 mmol/L 12/27/2022 3:30 PM EDT [facility] CO2 24 22 - 29 mmol/L 12/27/2022 3:30 PM EDT [facility] Anion Gap 12 5 - 15 mmol/L 12/27/2022 3:30 PM EDT [facility] Glucose 103 74 - 109 mg/dL 12/27/2022 3:30 PM EDT [facility] BUN 12 6 - 20 MG/DL 12/27/2022 3:30 PM EDT [facility] Creatinine 0.75 0.51 - 0.95 MG/DL 12/27/2022 3:30 PM EDT [facility] BUN/Creatinine Ratio 16 12 - 20 12/27/2022 3:30 PM EDT [facility] Est, Glom Filt Rate >60 >60 ml/min/1.7 3m2 12/27/2022 3:30 PM EDT [facility] Comment: Pediatric calculator link: https://www.kidney.org/professionals/kdoqi/gfr_calculatorped Effective Dec 21, 2021 These results are not intended for use in patients <18 years of age. eGFR results are calculated without a race factor using ??the 2020 CKD-EPI equation. Careful clinical correlation is recommended, particularly when comparing to results calculated using previous equations. The CKD-EPI equation is less accurate in patients with extremes of muscle mass, extra-renal metabolism of creatinine, excessive creatine ingestion, or following therapy that affects renal tubular secretion. Calcium 9.7 8.6 - 10.0 MG/DL 12/27/2022 3:30 PM EDT [facility] Total Bilirubin 0.36 0 - 1.20 mg/dL 12/27/2022 3:30 PM EDT [facility] ALT 12 0 - 35 U/L 12/27/2022 3:30 PM EDT [facility] AST 18 0 - 35 U/L 12/27/2022 3:30 PM EDT [facility] Alk Phosphatase 75 35 - 104 U/L 12/27/2022 3:30 PM EDT [facility] Total Protein 7.2 6.4 - 8.3 g/dL 12/27/2022 3:30 PM EDT [facility] Albumin 4.8 3.5 - 5.2 g/dL 12/27/2022 3:30 PM EDT [facility] Albumin/Globulin Ratio 2.0 1.0 - 3.0 12/27/2022 3:[address] [facility] Blood SERUM OR PLASMA SPECIMEN / Unknown 12/27/2022 1:30 PM EDT 12/27/2022 3:00 PM EDT Len Swenson DO CHEMISTRY ORDERABLES [facility] Dr. Lanny Michaels [address] [place] [phone] * EKG 12 Lead (12/27/2022) Heart Rate 68 bpm [facility] E[facility] RR INTERVAL 882 ms [facility] Atrial Rate 67 ms [facility] P-R Interval 138 ms [facility] P DURATION 94 ms [facility] E[facility] P HORIZONTAL AXIS -13 deg [facility] E[facility] P FRONT AXIS 30 deg [facility] E[facility] Q ONSET 502 ms [facility] EKG QRSD INTERVAL 87 ms [facility] Q-T Interval 380 ms [facility] EKG QTCB 405 ms [facility] EKG QTCF 396 ms [facility] E[facility] QRS HORIZONTAL AXIS -10 deg [facility] E[facility] QRS AXIS 63 deg [facility] EKG I-40 HORIZONTAL AXIS deg [facility] EKG I-40 FRONT AXIS 19 deg [facility] EKG T-40 HORIZONTAL AXIS -23 deg [facility] EKG T-40 FRONT AXIS 76 deg [facility] E[facility] T HORIZONTAL AXIS 29 deg [facility] EKG T WAVE AXIS 40 deg [facility] S-T HORIZONTAL AXIS 91 deg [facility] E[facility] S-T FRONT AXIS -4 deg [facility] 12/27/2022 Len Swenson DO ECG ORDERABLES [facility] documented in this encounter Visit Diagnoses Diagnosis Abdominal pain, epigastric- Primary documented in this encounter Administered Medications Inactive Administered Medications - up to 3 most recent administrations Medication Order MAR Action Action Date Dose Rate Site famotidine (PEPCID) 20 mg in sodium chloride (PF) 0.9 % 10 mL injection 20 mg, IntraVENous, NOW, On Tue12/27/22 at 1615, For 1 dose, IV push over 2 minutes. Dilute with 10 mL NS., STAT Given 12/27/2022 5:00 PM EDT 20 mg iohexol (OMNIPAQUE 350) solution 90 mL 90 mL, IntraVENous, IMG ONCE PRN, 1 dose, Starting on Tue12/27/22 at 1636, Until Tue12/27/22 at 1642, Other, STAT Given 12/27/2022 4:42 PM EDT 90 mLs ketorolac (TORADOL) injection 15 mg 15 mg, IntraVENous, NOW, 1 dose, On Tue12/27/22 at 1615, Do not administer for more than 5 days., STAT Given 12/27/2022 5:00 PM EDT 15 mg ondansetron (ZOFRAN) injection 4 mg 4 mg, IntraVENous, ONCE, 1 dose, On Tue12/27/22 at 1615, STAT Given 12/27/2022 5:00 PM EDT 4 mg sodium chloride 0.9 % bolus 1,000 mL 1,000 mL (13.6 mL/kg), IntraVENous, at 495.9 mL/hr, Administer over 121 Minutes, ONCE, On Tue12/27/22 at 1615, For 1 dose, STAT New Bag 12/27/2022 5:00 PM EDT 1,000 mLs 495.9 mL/hr documented in this encounter Active and Recently Administered Medications Times are shown in EDT. Scheduled Medication Order 12/25/2022 12/26/2022 12/27/2022 famotidine (PEPCID) 20 mg in sodium chloride (PF) 0.9 % 10 mL injection (COMPLETED) 20 mg, IntraVENous, NOW, On Tue12/27/22 at 1615, For 1 dose, IV push over 2 minutes. Dilute with 10 mL NS., STAT 1700 (Given - Provid er: Audrey Kent RN) ketorolac (TORADOL) injection 15 mg (COMPLETED) 15 mg, IntraVENous, NOW, 1 dose, On Tue12/27/22 at 1615, Do not administer for more than 5 days., STAT 1700 (Given - Provid er: Audrey Kent RN) maalox/viscous lidocaine (COV GI COCKTAIL) 40 mL, Oral, ONCE, 1 dose, On Tue12/27/22 at 1734, Shake Well: For Oral Use. RN to mix: Maalox 30 ml and Lidocaine Viscous 10 ml = total volume 40 ml., STAT 1805 (Not Given - Pr ovider: Dennis Chavez RN - Reason: Patient/family refused) ondansetron (ZOFRAN) injection 4 mg (COMPLETED) 4 mg, IntraVENous, ONCE, 1 dose, On Tue12/27/22 at 1615, STAT 1700 (Given - Provid er: Audrey Kent RN) sodium chloride 0.9 % bolus 1,000 mL (COMPLETED) 1,000 mL (13.6 mL/kg), IntraVENous, at 495.9 mL/hr, Administer over 121 Minutes, ONCE, On Tue12/27/22 at 1615, For 1 dose, STAT 1700 (New Bag - Prov ider: Audrey Kent, NANDINI)[id number] (Stopped - Provider: Dennis Chavez RN) PRN Medication Order 12/25/2022 12/26/2022 12/27/2022 iohexol (OMNIPAQUE 350) solution 90 mL (COMPLETED) 90 mL, IntraVENous, IMG ONCE PRN, 1 dose, Starting on Tue12/27/22 at 1636, Until Tue12/27/22 at 1642, Other, STAT 1642 (Given - Provid er: Iva Andrade) documented in this encounter Care Teams Soldering Machine Operator Automatic Relationship Specialty Start Date End Date Lucrecia Penny APRN - TIP BANDER [address] [place] [phone] PCP - General 02/02/22 documented as of this encounter
--- OUTSIDE RECORDS SUMMARY | 2023-12-04 02:38 | XMS_ITS | Encounter Summary ---
Author Organization [facility] Address [address] [place] [address] Care Team Providers Care Dermatology Nurse Practitioner Name Role Phone Lucrecia Penny APRN - CAREER DEVELOPER Primary Care Provider [phone] Reason for Visit * Reason Comments Cough Pt started today wit h chills, cough, body aches, nasal congestion and fatigue. Pt states she felt palpitations this AM that have since resolved. Encounter Details Date Type Department Care Team (Latest Contact Info) Description 02/25/2022 4:44 PM EST - 02/25/2022 5:29 PM EST Hospital Encounter [facility] [address] [place] [address] Eris Cantrell, DO [address] [place] [address] Essential hypertension (Primary Dx); Flu-like symptoms; COVID-19 virus antibody negative; Contact with or exposure to viral disease; Tobacco use Discharge Disposition: Home or Self Care Social [...] Sign Reading Time Taken Comments Blood Pressure 172/108 02/25/2022 5:15 PM EST Pulse 98 02/25/2022 4:48 PM EST Temperature 37.7 ??C (99.8 ??F) 02/25/2022 5:15 PM ES T Respiratory Rate 18 02/25/2022 4:48 PM EST Oxygen Saturation 100% 02/25/2022 4:48 PM EST Inhaled Oxygen Concentration - - Weight - - Height - - Body Mass Index - - documented in this encounter Discharge Instructions * Discharge Instructions* Eris Cantrell DO - 02/25/2022 5:24 PM EST You have tested negative for the influenza virus but your symptoms are consistent with influenza. You could have a false negative test result. Conservative treatment is recommended. Your blood pressure is quite elevated. Have your blood pressure checked on a regular basis and share the results with your primary medical provider this coming week. Seek medical attention if having any worsening symptoms. Your oxygenation is 100% on room air in your lung sounds are clear. Get extra rest and drink plenty of fluids. * Attachments The following attachments cannot be sent through Care Everywhere. * Diet: DASH ([place] Zeal[place]) * Influenza ([place]) documented in this encounter Medications at Time of Discharge Medication Sig Dispensed Refills Start Date End Date escitalopram (LEXAPRO) 10 MG tablet Take 10 mg by mouth daily 02/01/2022 lisinopril (PRINIVIL;ZESTRIL) 5 MG tablet 02/01/2022 11/21/2022 documented as of this encounter Plan of Treatment Not on file documented as of this encounter Procedures Procedure Name Priority Date/Time Associated Diagnosis Comments POC COVID-19, FLU A/B STAT 02/25/2022 5:08 PM EST documented in this encounter Results * POC COVID-19, FLU A/B (02/25/2022 5:08 PM EST) SARS-CoV-2 RNA,(POC) Not-Detected Influenza A Antigen, POC Negative Negative Influenza B Antigen, POC Negative Negative Valid Internal Control, POC yes LOT NUMBER POC [id number] Vendor and kit name [employer] COVID-19 Ag CARD - This test is an antigen test (this test has been authorized under Emergency Use Authorization) 02/25/2022 5:08 PM EST Eris Cantrell DO POINT OF CARE TEST O RDERABLES documented in this encounter Visit Diagnoses Diagnosis Essential hypertension- Primary Unspecified essential hypertension Flu-like symptoms Influenza with other respiratory manifestations COVID-19 virus antibody negative Contact with or exposure to viral disease Contact with or exposure to other viral diseases Tobacco use Tobacco use disorder documented in this encounter Care Teams Dermatology Nurse Practitioner Relationship Specialty Start Date End Date Lucrecia Penny, HEAD INSPECTOR AND CENTER MARKER - CAREER DEVELOPER [address] [facility] [place] [phone] PCP - General 02/02/22 documented as of this encounter
--- OUTSIDE RECORDS SUMMARY | 2023-12-04 02:38 | XMS_ITS | Clinical Summary ---
Author Organization [facility] Address [address] [place] [address] Phone Care Team Providers Care Form Presser Name Role Phone JesusMaggie mckenzie Lupe ZHENG Primary Care Provider [phone] Allergies Active Allergy Reactions Criticality Noted Date [...] Last Assessment & Plan: Patient welcomed to [facility]. History reviewed and updated. Preventative measures [...] Next Due COVID-19 (Unspecified) 11/19/2021 Tdap 09/15/2020 Family History Medical History Relation Comments Hypertension Father Stomach cancer Maternal Aunt Lung cancer Maternal Grandfather Unspecified Skin Cancer Maternal Grandmother Breast Cancer Negative FH Ovarian Cancer Negative FH Uterine Cancer Negative FH Relation Status Comments Father Maternal Aunt Maternal Grandfather Maternal Grandmother Social History Tobacco Use Types Packs/Day Years [...] 06/28/2022 9:19 AM EDT Plan of Treatment Health Maintenance Due Date Last Done Comments Varicella Vaccines (1 of 2 - 13+ 2-dose series) 09/09/1996 HIV Screening 09/09/1998 Hepatitis C Screening 09/09/2001 Hepatitis B Vaccines (1 of 3 - 19+ 3-dose series) 09/09/2002 PAP Smear 05/13/2023 05/13/2020, 04/25/2018, 04/19/2017 Screening Mammogram 2023 COVID-19 Vaccine (2 - 2022-2 4 season) 2023 11/19/2021 Influenza Vaccine (#1) 2023 Diabetes Screening 06/29/2025 06/29/2022, 06/29/2022 DTaP/Tdap/Td Vaccines (2 - T d or Tdap) 09/15/2030 09/15/2020 HIB Vaccines Aged Out No longer eligi ble based on patient's age to complete this topic HPV Vaccines Aged Out No longer eligi ble based on patient's age to complete this topic Hepatitis A Vaccines Aged Out No long er eligible based on patient's age to complete this topic IPV Vaccines Aged Out No longer eligi ble based on patient's age to complete this topic Meningococcal Vaccines Aged Out No lo nger eligible based on patient's age to complete this topic Pneumococcal Vaccine: Pediatrics (0-5 years) and At-Risk Patients (6-64 years) Aged Out No longer eligible based on patient's age to complete this topic Procedures Procedure Name Priority Date/Time Associated Diagnosis Comments COMPREHENSIVE METABOLIC PANEL Routine 06/29/2022 8:31 AM EDT Preventive measure PAP SMEAR Routine 05/13/2020 12:00 AM EST from Last 3 Months or Most Recently Relevant to Health Maintenance Results * (ABNORMAL) Comprehensive Metabolic Panel (06/29/2022 8:31 AM EDT) Sodium 142 136 - 145 mmol/L LAB SEROLOGY ATELLICA METHOD 06/29/2022 2:15 PM EDT [facility] Potassium 3.8 3.5 - 5.1 mmol/L LAB SEROLOGY ATELLICA METHOD 06/29/2022 2:15 PM T [facility] Chloride 110(H) 98 - 107 mmol/L LAB SEROLOGY ATELLICA METHOD 06/29/2022 2:15 PM EDT [facility] Carbon Dioxide 23 20 - 31 mmol/L LAB SEROLOGY ATELLICA METHOD 06/29/2022 2:15 PM EDT [facility] Anion Gap 9 5 - 15 mmol/L LAB SEROLOGY ATELLICA METHOD 06/29/2022 2:15 PM T [facility] Glucose 93 74 - 100 mg/dL LAB SEROLOGY ATELLICA METHOD 06/29/2022 2:15 PM T [facility] BUN 13 9 - 23 mg/dL LAB SEROLOGY ATELLICA METHOD 06/29/2022 2:15 PM EDT [facility] Creatinine 0.82(H) 0.50 - 0.80 mg/dL LAB SEROLOGY ATELLICA METHOD 06/29/2022 2:15 PM EDT [facility] BUN/Creatinine Ratio 15.85 LAB SEROLOGY ATELLICA METHOD 06/29/2022 2:15 PM EDT [facility] Calcium 8.9 8.3 - 10.6 mg/dL LAB SEROLOGY ATELLICA METHOD 06/29/2022 2:15 PM EDT [facility] Protein, Total 6.4 5.7 - 8.2 g/dL LAB SEROLOGY ATELLICA METHOD 06/29/2022 2:15 PM EDT [facility] Albumin 4.2 3.2 - 4.8 g/dL LAB SEROLOGY ATELLICA METHOD 06/29/2022 2:15 PM EDT [facility] AST 19 <=34 U/L LAB SEROLOGY ATELLICA METHOD 06/29/2022 2:15 PM EDT [facility] ALT 12 10 - 49 U/L LAB SEROLOGY ATELLICA METHOD 06/29/2022 2:15 PM EDT [facility] ALK Phos 66 46 - 116 U/L LAB SEROLOGY ATELLICA METHOD 06/29/2022 2:15 PM EDT [facility] Bilirubin, Total 0.5 0.3 - 1.2 mg/dL LAB SEROLOGY ATELLICA METHOD 06/29/2022 2:15 PM EDT [facility] Globulin 2.2 g/dL LAB SEROLOGY ATELLICA METHOD 06/29/2022 2:15 PM EDT [facility] Albumin Globulin Ratio 1.91 LAB SEROLOGY ATELLICA METHOD 06/29/2022 2:15 PM EDT [facility] eGFR >90 >=60 mL/min/1. 73m*2 LAB SEROLOGY ATELLICA METHOD 06/29/2022 2:15 PM EDT [facility] Blood ENTIRE ANTECUBITAL VEIN / Unknown Venipuncture / Unknown 06/29/2022 8:31 AM EDT 06/29/2022 8:31 AM EDT Emily Bowman APRN LAB BLOOD ORDERABL ES [facility] [address] [place] [address] * Pap Smear (05/13/2020 12:00 AM EST) Provider Generic LABOR[facility] [address] [place] [phone], [facility] from Last 3 Months or Most Recently Relevant to Health Maintenance Care Teams Form Presser Relationship Specialty Start Date End Date Maggie Alonzo APRN [address] [place] [address] PCP - General Nurse Practitioner - Family Medicine 06/13/23
--- OUTSIDE RECORDS SUMMARY | 2023-12-04 02:38 | XMS_ITS | Encounter Summary ---
Author Organization [facility] [place] [address] Phone Care Team Providers Care Grip Name Role Phone Maggie Alonzo APRN Primary Care Provider Encounter Details Date Type Department Care Team (Late st Contact Info) Description 09/26/2022 Notation [facility] Health Information Management [facility], [address] [place] [phone] Generic, Provider [facility] [address] [place] [address] BP LOG Social History Tobacco Use Types Packs/Day Years [...] on filedocumented in this encounter Care Teams Grip Relationship Specialty Start Date End Date Maggie Alonzo APRN [address] [place], [place] [id number] PCP - General Nurse Practitioner - Family Medicine 06/13/23 documented as of this encounter
--- OUTSIDE RECORDS SUMMARY | 2023-12-04 02:38 | XMS_ITS | Clinical Summary ---
Author Organization [facility] Address [address] [place] [address] Care Team Providers Care Ssis Ssrs Developer Name Role Phone Lucrecia Penny APRN - PLUMBING AND HEATING CONTRACTOR Primary Care Provider [phone] Allergies Active Allergy Reactions Criticality Noted Date Comments Tramadol Itching 12/22/2021 Medications Medication Sig Dispensed Refills Start Date End Date Status escitalopram (LEXAPRO) 10 MG tablet Take 10 mg by mouth daily 02/01/2022 Active simvastatin (ZOCOR) 10 MG tablet 09/19/2022 Active lisinopril (PRINIVIL;ZESTRIL) 10 MG tablet 09/20/2022 Active sucralfate (CARAFATE) 1 GM tablet Take 1 tablet by mouth 4 times daily 120 tablet 12/27/2022 Active Social History Tobacco Use Types Packs/Day [...] Mass Index 28.7 12/27/2022 1:16 PM EDT Plan of Treatment Health Maintenance Due Date Last Done Comments Pneumococcal 0-64 years Vacc ine (1 of 2 - PCV) 09/09/1989 Lipids 09/09/1993 Depression Screen 1995 Varicella vaccine (1 of 2 - 13+ 2-dose series) 09/09/1996 HIV screen 09/09/1998 Hepatitis C screen 09/09/2001 Hepatitis B vaccine (1 of 3 - 19+ 3-dose series) 09/09/2002 Pap smear 09/09/2004 Cervical cancer screen 09/09/2013 HPV (without or with Pap) 09/09/2013 Diabetes screen 09/09/2018 Breast cancer screen 2023 Flu vaccine (#1) 10/20/2023 COVID-19 Vaccine (2 - 2022-2 4 season) 2023 11/19/2021 DTaP/Tdap/Td vaccine (2 - Td or Tdap) 09/15/2030 09/15/2020 HPV vaccine Aged Out No longer eligi ble based on patient's age to complete this topic Hepatitis A vaccine Aged Out No longe r eligible based on patient's age to complete this topic Hib vaccine Aged Out No longer eligi ble based on patient's age to complete this topic Meningococcal (ACWY) vaccine Aged Out No longer eligible based on patient's age to complete this topic Polio vaccine Aged Out No longer elig ible based on patient's age to complete this topic Care Teams Ssis Ssrs Developer Relationship Specialty Start Date End Date Lucrecia Penny, PACKAGE CLERK - PLUMBING AND HEATING CONTRACTOR [address] [place] [id number] PCP - General 02/02/22
--- NOTE | 2023-12-04 02:39 | ED.GENADUL_ITS ---
Discharge Plan Disposition Patient Disposition: Home Condition: Good Discharge Details Clinical Impression: Alcohol intoxication Primary Care Provider: Unknown,Unknown ED Provider: Henrique Brooks Home Meds and New Rx's Prescriptions: No Action naproxen 250 mg tablet 250 mg PO ONCE PRN Complete Multivitamin tablet 1 tab PO DAILY escitalopram oxalate [Lexapro] 10 mg tablet 10 mg PO DAILY valacyclovir [Valtrex] 500 mg tablet 500 mg PO Q12H PRN Qty: 6 11RF Rx Instructions: Take 1 tab PO evry 12 hours for 3 days lisinopril 10 mg tablet 10 mg PO BID Patient Comments: TAKE 1 TABLET BY MOUTH TWICE DAILY simvastatin 20 mg tablet 20 mg PO DAILY Patient Comments: TAKE 1 TABLET BY MOUTH EVERY NIGHT AT BEDTIME Discharge Instructions Instructions: Alcohol Intoxication ED Additional Instructions: At this time you have been evaluated there is no evidence of acute life-th reatening etiology. You are currently intoxicated. If you notice any worsening of your symptoms, or any new symptoms such as vomiting, diarrhea, fever, chills, shortness of breath, chest pain, numbness, weakness, or fainting , please return immediately to the emergency department for reevaluation. Please follow up with your primary care provider as soon as possible for reassessment and reevaluation. As always, it was a pleasure participating in your medical care today. HPI General Date/Time Provider Initiated Documentation: 12/04/23 02:33 . HPI Narrative: 38-year-old female with a past medical history of migraines, hypertension, presents today for medical clearance. State troopers report that the patient was picked up for DUI, she stated that she is on a bunch of medicines and was brought in to make sure that she was medically stable prior to going to detox. Patient states that she is on lisinopril, simvastatin and XXXXXX. She states that she drank a beer tonight. She denies any drugs, or any other medications. She is states that she did not take her nighttime medications because she was drinking beer tonight. There was no trauma or motor vehicle accident. The patient denies any suicidal ideations. When asked about homicidal ideations the patient states that sometimes I want to hurt this real estate services coordinator that brought me in. She denies any other complaints. No chest pain headache neck pain or extremity pain. She denies any other modifying factors. Related Data Home Medications ?Medication ?Instructions ?Recorded ?Confirmed multivitamin,ad-qefs-ufubefxw 1 tab PO DAILY 04/24/18 12/04/23 (Complete Multivitamin tablet) naproxen 250 mg tablet 250 mg PO ONCE PRN 05/29/19 12/04/23 escitalopram oxalate 10 mg tablet 10 mg PO DAILY 09/29/20 12/04/23 (Lexapro) valacyclovir 500 mg tablet 500 mg PO Q12H PRN #6 tabs 06/16/21 12/04/23 (Valtrex) lisinopril 10 mg tablet 10 mg PO BID 12/04/23 12/04/23 simvastatin 20 mg tablet 20 mg PO DAILY 12/04/23 12/04/23 Previous Rx's ?Medication ?Instructions ?Recorded valacyclovir 500 mg tablet 500 mg PO Q12H PRN #6 tabs 06/16/21 (Valtrex) Allergies Allergy/AdvReac Type Severity Reaction Status Date / Time tramadol Allergy Severe face Verified 12/04/23 02:39 swelling, itching General Stated Complaint: GenMedical SOURAV: 4 Review of Systems All systems reviewed & are unremarkable except as noted in HPI and below Exam Narrative Exam Narrative: 1.Const: Well-nourished, Well-developed, appearing stated age 2.Eyes: PERRL, no conjunctival injection, and symmetrical lids. 3.ENT: Atraumatic external nose and ears. Moist MM. Neck: Symmetric, trachea midline, No thyromegaly. 4.CVS: +S1/S2, No murmurs or gallops. Peripheral pulses 2+ and equal in all extremities. Brisk capillary refill in all extremities. 5.RESP: Unlabored respiratory effort. Clear to auscultation bilaterally. No wheezes rales or rhonchi 6.GI: Soft, Nontender/Nondistended, No hepatosplenomegaly. No guarding or rebound. 7.MSK: Normocephalic/Atraumatic, Extremities w/o deformity or ttp No cyanosis or clubbing, Normal movement of all extremities 8.Skin: Warm, Dry. No rashes or lesions. 9.Neuro: towel inspector II-XII grossly intact. Sensation grossly intact, no focal neurologic deficits. 10.Psych: (AAO) x3. Mildly intoxicated Course Vital Signs Vital signs: Vital Signs Temperature 36.7 C 12/04/23 02:33 Pulse 89 12/04/23 02:33 Respiratory Rate 16 12/04/23 02:33 Blood Pressure 140/104 H 12/04/23 02:33 Pulse Oximetry 98 12/04/23 02:33 Temperature 36.7 C 12/04/23 02:36 Temperature Source Oral 12/04/23 02:36 Pulse 89 12/04/23 02:36 Respiratory Rate 16 12/04/23 02:37 Respiratory Effort Normal, Non-Labored 12/04/23 02:37 Respiratory Depth Normal 12/04/23 02:37 Respiratory Pattern Normal 12/04/23 02:37 Blood Pressure 140/104 H 12/04/23 02:36 Blood Pressure Position Sitting 12/04/23 02:36 Pulse Oximetry 98 12/04/23 02:36 Oxygen Delivery Method Room Air 12/04/23 02:36 Oxygen Flow Rate 0 12/04/23 02:33 Pain Level 0 12/04/23 02:36 Medical Decision Making 38-year-old female with a past medical history of migraines, hypertension, presents today for medical clearance. State troopers report that the patient was picked up for DUI, she stated that she is on a bunch of medicines and was brought in to make sure that she was medically stable prior to going to detox. Patient states that she is on lisinopril, simvastatin and escitalopram. She states that she drank a beer tonight. She denies any drugs, or any other medications. She is states that she did not take her nighttime medications because she was drinking beer tonight. There was no trauma or motor vehicle accident. The patient denies any suicidal ideations. When asked about homicidal ideations the patient states that sometimes I want to hurt this real estate services coordinator that brought me in. She denies any other complaints. No chest pain headache neck pain or extremity pain. She denies any other modifying factors. Physical exam demonstrates well-appearing female, mild hypertension but she did miss her evening dose of antihypertensives. She appears mildly intoxicated but is able to speak clearly and articulately. She is able to walk well with no significant stumbling. She refuses additional blood work or further workup at this time. That being said I do not see any indication for emergent blood work or imaging given her physical exam with no evidence of trauma neurologic deficit or other significant abnormality aside from mild intoxication. Patient stable for discharge into police custody. No further workup indicated based on current clinical assessment history and physical exam findings. Patient stable at this time. I have extensively reviewed the treatment plan and discharge instructions with the patient. I have addressed all patient concerns at this time. The patient was made aware of what symptoms to monitor for that would warrant a return to the emergency department. Discussed the plan with the patient, they demonstrate verbal understanding and agreement with our assessment and plan at this time. The documentation in this chart was dictated using [employer] dictation software. Please excuse any dictation errors. Quality:SDOH Health Related Social Needs: No Data to Display PFSH All Active Problems Alcohol intoxication (Acute) Migraine headache without aura (Acute) Adjustment disorder with mixed anxiety and depressed mood (Acute) Nailbed laceration, finger (Acute) LMF DOS: 12/14/18 Personal history of cervical dysplasia (Chronic 04/19/17) 2007 - [facility] III LEEP/[facility] Medical History Ganglion cyst Tobacco abuse Genital herpes Abdominal bloating Acute low back pain Headache Hx of fracture of finger Pt reports rrf fx w/ pin placement. Surgical History Cervical Conization/LEEP 2007- LEEP/[facility] Family History Mother No problems noted. Father Diabetes Social History Smoking/Tobacco Use Status: Current every day Tobacco Type: cigarettes Tobacco: How many years used: 19 Quit status: considering quitting Smoking risk assessment performed?: Yes Alcohol Intake: current Alcohol Intake frequency: a few times a week Alcohol type: beer Drug use: Never Substance use type: does not use Household members: children Housing: house Current gender identity: female Seatbelt use: always Do you feel safe at home: Yes Do you feel safe in your relationship?: Yes Female Reproductive History Menstrual control method: none History History 5 Para 3 Hx # Term Pregnancies 3 Multiple births Hx # Pregnancies Ectopic pregnancies AB induced Hx Number of Living Children AB spontaneous
--- OUTSIDE RECORDS SUMMARY | 2023-12-04 02:39 | XMS_ITS | Encounter Summary ---
Author Organization [facility] [place] [address] Phone Care Team Providers Care Field Associate Name Role Phone Maggie Alonzo APRN Primary Care Provider [phone] Encounter Details Date Type Department Care Team (Late st Contact Info) Description 12/14/2018 Notation [facility] Health Information Management [facility], [address] [place] [phone] Generic, Provider [facility] 1 [place] [address] OPERATIVE REPORT - NAIL BED LACERATION Social History Tobacco Use Types Packs/Day Years Used Date Smoking Tobacco: Never Assessed Sex and Gender Information Value Date Recorded Sex Assigned at Not on file Gender Identity Not on file Sexual Orientation Not on file documented as of this encounter Plan of Treatment Not on file documented as of this encounter Visit Diagnoses Not on filedocumented in this encounter Care Teams Field Associate Relationship Specialty Start Date End Date Maggie Alonzo APRN [address] [place] [address] PCP - General Nurse Practitioner - Family Medicine 06/13/23 documented as of this encounter
--- OUTSIDE RECORDS SUMMARY | 2023-12-04 02:39 | XMS_ITS | Encounter Summary ---
Author Organization [facility] Address [address] [place] [address] Phone Care Team Providers Care Securities Clerk Name Role Phone PcpMichelle MD Primary Care Provider Unavailabl e Encounter Details Date Type Department Care Team (Latest Contact Info) Description 12/22/2021 Travel Social History Tobacco Use Types Packs/Day [...] suspected to have Coronavirus/COVID-19? No / Unsure 12/22/2021 9:48 AM EDT documented as of this encounter Plan of Treatment Not on file documented as of this encounter Visit Diagnoses Not on filedocumented in this encounter Care Teams Securities Clerk Relationship Specialty Start Date End Date PcpMichelle MD PCP - General Generic/Test/No PCP 12/14/21 06/22/22 documented as of this encounter
--- OUTSIDE RECORDS SUMMARY | 2023-12-04 02:39 | XMS_ITS | Encounter Summary ---
Author Organization [facility] [address] Phone Care Team Providers Care Central Supply Technician Supervisor Name Role Phone Maggie Alonzo APRN Primary Care Provider [phone] Encounter Details Date Type Department Care Team (Late st Contact Info) Description 12/31/2019 Notation [facility] Health Information Management [facility], [address] [place] [phone] Generic, Provider [facility] [address] [place] [address] Social History Tobacco Use Types Packs/Day Years [...] Associated Diagnosis Comments SCANNED MISCELLANEOUS LAB TEST 12/31/2019 11:59 PM EDT documented in this encounter Results * SCANNED MISCELLANEOUS LAB TEST (12/31/2019 11:59 PM EDT) Provider Generic LAB BLOOD ORDERABLES documented in this encounter Visit Diagnoses Not on filedocumented in this encounter Care Teams Central Supply Technician Supervisor Relationship Specialty Start Date End Date Maggie Alonzo APRN [address] [place], [place] [id number] PCP - General Nurse Practitioner - Family Medicine 06/13/23 documented as of this encounter
--- OUTSIDE RECORDS SUMMARY | 2023-12-04 02:39 | XMS_ITS | Encounter Summary ---
Author Organization [facility] [place] [address] Phone Care Team Providers Care Insurance Analyst Name Role Phone Maggie Alonzo APRN Primary Care Provider [phone] Encounter Details Date Type Department Care Team (Late st Contact Info) Description 12/14/2018 Notation [facility] Health Information Management [facility], [address] [place] [phone] Generic, Provider [facility] 1 [place] [address] DC - NAILBED LACERATION Social History Tobacco Use Types Packs/Day Years Used Date Smoking Tobacco: Never Assessed Sex and Gender Information Value Date Recorded Sex Assigned at Not on file Gender Identity Not on file Sexual Orientation Not on file documented as of this encounter Plan of Treatment Not on file documented as of this encounter Visit Diagnoses Not on filedocumented in this encounter Care Teams Insurance Analyst Relationship Specialty Start Date End Date Maggie Alonzo APRN [address] [place] [address] PCP - General Nurse Practitioner - Family Medicine 06/13/23 documented as of this encounter
--- OUTSIDE RECORDS SUMMARY | 2023-12-04 02:39 | XMS_ITS | Encounter Summary ---
Author Organization [facility] [place] [address] Phone Care Team Providers Care Supervisor Tile And Mottle Name Role Phone Maggie Alonzo APRN Primary Care Provider [phone] Encounter Details Date Type Department Care Team (Late st Contact Info) Description 06/19/2021 Notation [facility] Information Management [facility], [address] [place] [phone] Generic, Provider [facility] [address] [place] [address] EMERGENCY REPORT Social History Tobacco Use Types Packs/Day Years Used Date Smoking Tobacco: Never Assessed Sex and Gender Information Value Date Recorded Sex Assigned at Not on file Gender Identity Not on file Sexual Orientation Not on file documented as of this encounter Plan of Treatment Not on file documented as of this encounter Visit Diagnoses Not on filedocumented in this encounter Care Teams Supervisor Tile And Mottle Relationship Specialty Start Date End Date Maggie Alonzo APRN [address] [place] [address] PCP - General Nurse Practitioner - Family Medicine 06/13/23 documented as of this encounter
--- OUTSIDE RECORDS SUMMARY | 2023-12-04 02:39 | XMS_ITS | Encounter Summary ---
Author Organization [facility] [place] [address] Phone Care Team Providers Care Oil Boiler Name Role Phone Pcp, No MD Primary Care Provider Unavailabl e Reason for Visit * Reason Comments Employment Physical Pre-employment Physi дмитрий Encounter Details Date Type Department Care Team (Latest Contact Info) Description 12/22/2021 9:00 AM EDT [facility] [address] [place] [address], [address] [place] [address] Adela Meeks RN Examination of eyes and vision (Primary Dx); Drug screening, pre-employment Social History Tobacco Use Types Packs/Day Years [...] Sign Reading Time Taken Comments Blood Pressure 150/102 12/22/2021 9:48 AM EDT Pulse 88 12/22/2021 9:15 AM EDT Temperature 36.6 ??C (97.8 ??F) 12/22/2021 9:15 AM ED T Respiratory Rate - - Oxygen Saturation 100% 12/22/2021 9:15 AM EDT Inhaled Oxygen Concentration - - Weight 66.7 kg (147 lb) 12/22/2021 9:15 AM EDT Height 160 cm (5' 3) 12/22/2021 9:15 AM EDT Body Mass Index 26.04 12/22/2021 9:15 AM EDT documented in this encounter Progress Notes * Adela Meeks RN - 12/22/2021 9:00 AM EDT Patient in for Pre-employment Physical. Urine specimen collected at 9:40am. Urine specimen to be sent to [employer], and results to Michelle Crawford. Reviewed Pre-Employment Assessment Questionnaire with patient. Patient reports has high blood pressure not being managed by a provider at this time due to recent move from [place] and waiting for insurance to renew end of December/beginning of January. Currently on medications but not able to see new provider until January. Patient did report missing medication dosage last evening. Blood pressure elevated during appointment, provided education with potential risks of Heart Attack and Stroke. Provided instruction to make sure she is seen by a provider and continues taking medications as prescribed. Subjective: Tsering [place] is a 36 year old female. Patient presents with: Employment Physical: Pre-employment Physical HPI HPI Review of Systems Social History Tobacco Use Smoking status: Every Day Types: Cigarettes, Vaping Alcohol use: Not Currently Drug use: Not Currently Current Outpatient Medications Medication Sig lisinopril (PRINIVIL) 5 MG Oral Tab Take 5 mg by mouth in the morning. Review of patient's allergies indicates: Tramadol Objective: Visit Vitals BP (!) 150/102 (Location: Left Arm, Patient Position: Sitting, Cuff Size: Regular) Pulse 88 Temp 97.8 ??F (36.6 ??C) (Oral) Ht 5' 3 (1.6 m) Wt 147 lb (66.7 kg) SpO2 100% BMI 26.04 kg/m?? Physical Exam HENT: Ears: Comments: Frequency Right Ear Left Ear 0.5 kHz 40 20 1.0 kHz 20 20 2.0 kHz 20 20 4.0 kHz 20 20 Eyes: Comments: See [place] and Stereostatic fly test form, passed. J1 Eye Exam passed without glasses. Color perception passed Paperwork will be scanned and sent to Michelle Crawford Musculoskeletal: Comments: Tinel's and phalen's passed No numbness or tingling when test was performed. Assessment/Plan: Diagnoses and all orders for this visit: Examination of eyes and vision (Primary) - VISUAL SCREENING TEST, BILAT [52750] - Pure Tone Audiometry, Air Drug screening, pre-employment - Specimen Handling documented in this encounter Plan of Treatment Not on file documented as of this encounter Procedures Procedure Name Priority Date/Time Associated Diagnosis Comments PURE TONE AUDIOMETRY, AIR Routine 12/22/2021 9:49 AM EDT Examination of eyes and vision VISUAL SCREENING TEST-BILAT BACKOFFICE AMB Routine 12/22/2021 9:49 AM EDT Examination of eyes and vision documented in this encounter Visit Diagnoses Diagnosis Examination of eyes and vision- Primary Drug screening, pre-employment Health examination of defined subpopulation documented in this encounter Care Teams Oil Boiler Relationship Specialty Start Date End Date Pcp, MD Michelle PCP - General Generic/Test/No PCP 12/14/21 06/22/22 documented as of this encounter
--- OUTSIDE RECORDS SUMMARY | 2023-12-04 02:39 | XMS_ITS | Encounter Summary ---
Author Organization [facility] [place] [address] Phone Care Team Providers Care Service Desk Analyst Name Role Phone Maggie Alonzo APRN Primary Care Provider [phone] Encounter Details Date Type Department Care Team (Late st Contact Info) Description 05/13/2020 Notation [facility] Health Information Management [facility], [address] [place] [phone] Generic, Provider [facility] 1 [place] [address] Social History Tobacco Use Types Packs/Day Years [...] Associated Diagnosis Comments SCANNED MISCELLANEOUS LAB TEST 05/13/2020 11:59 PM EST documented in this encounter Results * SCANNED MISCELLANEOUS LAB TEST (05/13/2020 11:59 PM EST) Provider Generic LAB BLOOD ORDERABLES documented in this encounter Visit Diagnoses Not on filedocumented in this encounter Care Teams Service Desk Analyst Relationship Specialty Start Date End Date Maggie Alonzo APRN [address] [place], [place] [id number] PCP - General Nurse Practitioner - Family Medicine 06/13/23 documented as of this encounter
--- OUTSIDE RECORDS SUMMARY | 2023-12-04 02:39 | XMS_ITS | Encounter Summary ---
Author Organization [facility] [place] [address] Phone Care Team Providers Care Steel Chipper Name Role Phone Maggie Alonzo APRN Primary Care Provider [phone] Encounter Details Date Type Department Care Team (Late st Contact Info) Description 06/19/2021 Notation [facility] Health Information Management [facility], [address] [place] [phone] Generic, Provider [facility] 1 [place] [address] ED - GOUT Social History Tobacco Use Types Packs/Day Years Used Date Smoking Tobacco: Never Assessed Sex and Gender Information Value Date Recorded Sex Assigned at Not on file Gender Identity Not on file Sexual Orientation Not on file documented as of this encounter Plan of Treatment Not on file documented as of this encounter Visit Diagnoses Not on filedocumented in this encounter Care Teams Steel Chipper Relationship Specialty Start Date End Date Maggie Alonzo APRN [address] [place] [address] PCP - General Nurse Practitioner - Family Medicine 06/13/23 documented as of this encounter
--- OUTSIDE RECORDS SUMMARY | 2023-12-04 02:39 | XMS_ITS | Encounter Summary ---
Author Organization [facility] [place] [address] Phone Care Team Providers Care Residential Substance Abuse Counselor Name Role Phone Maggie Alonzo APRN Primary Care Provider [phone] Encounter Details Date Type Department Care Team (Late st Contact Info) Description 04/09/2020 Notation [facility] Health Information Management [facility], [address] [place] [phone] Generic, Provider [facility] 1 [place] [address] Social History Tobacco Use Types Packs/Day Years [...] Associated Diagnosis Comments SCANNED MISCELLANEOUS LAB TEST 04/09/2020 11:59 PM EST documented in this encounter Results * SCANNED MISCELLANEOUS LAB TEST (04/09/2020 11:59 PM EST) Provider Generic LAB BLOOD ORDERABLES documented in this encounter Visit Diagnoses Not on filedocumented in this encounter Care Teams Residential Substance Abuse Counselor Relationship Specialty Start Date End Date Maggie Alonzo APRN [address] [place], [place] [phone] PCP - General Nurse Practitioner - Family Medicine 06/13/23 documented as of this encounter
--- OUTSIDE RECORDS SUMMARY | 2023-12-04 02:39 | XMS_ITS | Encounter Summary ---
Author Organization [facility] [place] [address] Phone Care Team Providers Care Head Of Transport Logistics Name Role Phone Maggie Alonzo APRN Primary Care Provider [phone] Encounter Details Date Type Department Care Team (Late st Contact Info) Description 10/02/2020 Notation [facility] Health Information Management [facility], [address] [place] [phone] Generic, Provider [facility] 1 [place] [address] Social History Tobacco Use Types Packs/Day Years [...] Associated Diagnosis Comments SCANNED MISCELLANEOUS LAB TEST 10/02/2020 11:59 PM EDT documented in this encounter Results * SCANNED MISCELLANEOUS LAB TEST (10/02/2020 11:59 PM EDT) Provider Generic LAB BLOOD ORDERABLES documented in this encounter Visit Diagnoses Not on filedocumented in this encounter Care Teams Head Of Transport Logistics Relationship Specialty Start Date End Date Maggie Alonzo APRN [address] [place], [place] [phone] PCP - General Nurse Practitioner - Family Medicine 06/13/23 documented as of this encounter
--- OUTSIDE RECORDS SUMMARY | 2023-12-04 02:39 | XMS_ITS | Encounter Summary ---
Author Organization [facility] [address] Phone Care Team Providers Care Chemical Waste Management Technician Name Role Phone Maggie Alonzo APRN Primary Care Provider [phone] Encounter Details Date Type Department Care Team (Late st Contact Info) Description 05/29/2017 Notation [facility] Health Information Management [facility], [address] [place] [phone] Generic, Provider [facility] 1 [place] [address] ER - LOW BACK PAIN Social History Tobacco Use Types Packs/Day Years Used Date Smoking Tobacco: Never Assessed Sex and Gender Information Value Date Recorded Sex Assigned at Not on file Gender Identity Not on file Sexual Orientation Not on file documented as of this encounter Plan of Treatment Not on file documented as of this encounter Visit Diagnoses Not on filedocumented in this encounter Care Teams Chemical Waste Management Technician Relationship Specialty Start Date End Date Maggie Alonzo APRN [address] [place] [address] PCP - General Nurse Practitioner - Family Medicine 06/13/23 documented as of this encounter
--- OUTSIDE RECORDS SUMMARY | 2023-12-04 02:39 | XMS_ITS | Encounter Summary ---
Author Organization [facility] [place] [place] [address] Phone Care Team Providers Care Heel Slugger Name Role Phone PcpMichelle MD Primary Care Provider Unavailabl e Encounter Details Date Type Department Care Team (Late st Contact Info) Description 01/18/2022 Abstract [facility] of [address] [id number] Nyasia Hart LPN Social History Tobacco Use [...] on filedocumented in this encounter Care Teams Heel Slugger Relationship Specialty Start Date End Date PcpMichelle MD PCP - General Generic/Test/No PCP 12/14/21 06/22/22 documented as of this encounter
--- OUTSIDE RECORDS SUMMARY | 2023-12-04 02:39 | XMS_ITS | Encounter Summary ---
Author Organization [facility] [place] [address] Phone Care Team Providers Care Animal Caretaker Name Role Phone Maggie Alonzo APRN Primary Care Provider [phone] Encounter Details Date Type Department Care Team (Late st Contact Info) Description 09/03/2021 Notation [facility], [address] [place] [phone] Generic, Provider [facility] 1 [place] [address] Social History Tobacco Use Types Packs/Day Years [...] Associated Diagnosis Comments SCANNED MISCELLANEOUS LAB TEST 09/03/2021 11:59 PM EDT documented in this encounter Results * SCANNED MISCELLANEOUS LAB TEST (09/03/2021 11:59 PM EDT) Provider Generic LAB BLOOD ORDERABLES documented in this encounter Visit Diagnoses Not on filedocumented in this encounter Care Teams Animal Caretaker Relationship Specialty Start Date End Date Maggie Alonzo APRN [address] [place], [place] [id number] PCP - General Nurse Practitioner - Family Medicine 06/13/23 documented as of this encounter
--- OUTSIDE RECORDS SUMMARY | 2023-12-04 02:39 | XMS_ITS | Encounter Summary ---
Author Organization [facility] [place] [address] Phone Care Team Providers Care Pit And Auxiliaries Supervisor Name Role Phone Maggie Alonzo APRN Primary Care Provider [phone] Encounter Details Date Type Department Care Team (Late st Contact Info) Description 12/07/2018 Notation [facility] Health Information Management [facility], [address] [place] [phone] Generic, Provider [facility] 1 [place] [address] ED - LACERATION Social History Tobacco Use Types Packs/Day Years Used Date Smoking Tobacco: Never Assessed Sex and Gender Information Value Date Recorded Sex Assigned at Not on file Gender Identity Not on file Sexual Orientation Not on file documented as of this encounter Plan of Treatment Not on file documented as of this encounter Visit Diagnoses Not on filedocumented in this encounter Care Teams Pit And Auxiliaries Supervisor Relationship Specialty Start Date End Date Maggie Alonzo APRN [address] [place] [address] PCP - General Nurse Practitioner - Family Medicine 06/13/23 documented as of this encounter
--- OUTSIDE RECORDS SUMMARY | 2023-12-04 02:39 | XMS_ITS | Encounter Summary ---
Author Organization [facility] [place] [address] Phone Care Team Providers Care Windshield Installer Name Role Phone Maggie Alonzo APRN Primary Care Provider [phone] Encounter Details Date Type Department Care Team (Late st Contact Info) Description 05/08/2019 Notation [facility] Health Information Management [facility], [address] [place] [phone] Generic, Provider [facility] 1 [place] [address] Social History Tobacco Use Types Packs/Day Years [...] Associated Diagnosis Comments SCANNED MISCELLANEOUS LAB TEST 05/08/2019 11:59 PM EST documented in this encounter Results * SCANNED MISCELLANEOUS LAB TEST (05/08/2019 11:59 PM EST) Provider Generic LAB BLOOD ORDERABLES documented in this encounter Visit Diagnoses Not on filedocumented in this encounter Care Teams Windshield Installer Relationship Specialty Start Date End Date Maggie Alonzo APRN [address] [place], [place] [id number] PCP - General Nurse Practitioner - Family Medicine 06/13/23 documented as of this encounter
--- OUTSIDE RECORDS SUMMARY | 2023-12-04 02:39 | XMS_ITS | Encounter Summary ---
Author Organization [facility] [place] [address] Phone Care Team Providers Care Family Nurse Practitioner Name Role Phone Maggie Alonzo APRN Primary Care Provider [phone] Encounter Details Date Type Department Care Team (Late st Contact Info) Description 05/12/2020 Notation [facility] Health Information Management [facility], [address] [place] [address] [phone] Generic, Provider [facility] 1 [place] [address] Social History Tobacco Use Types Packs/Day Years [...] Associated Diagnosis Comments SCANNED MISCELLANEOUS LAB TEST 05/12/2020 11:59 PM EST SCANNED MISCELLANEOUS LAB TEST 05/12/2020 11:59 PM EST documented in this encounter Results * SCANNED MISCELLANEOUS LAB TEST (05/12/2020 11:59 PM EST) Provider Generic LAB BLOOD ORDERABLES * SCANNED MISCELLANEOUS LAB TEST (05/12/2020 11:59 PM EST) Provider Generic LAB BLOOD ORDERABLES documented in this encounter Visit Diagnoses Not on filedocumented in this encounter Care Teams Family Nurse Practitioner Relationship Specialty Start Date End Date Maggie Alonzo APRN [address] [place] [address] PCP - General Nurse Practitioner - Family Medicine 06/13/23 documented as of this encounter
--- OUTSIDE RECORDS SUMMARY | 2023-12-04 02:39 | XMS_ITS | Encounter Summary ---
Author Organization [facility] [place] [address] Phone Care Team Providers Care Interior Mechanic Name Role Phone Maggie Alonzo APRN Primary Care Provider [phone] Encounter Details Date Type Department Care Team (Late st Contact Info) Description 11/28/2018 Notation [facility] Health Information Management [facility], [address] [place] [phone] Generic, Provider [facility] 1 [place] [address] ER - URI / COUGH Social History Tobacco Use Types Packs/Day Years Used Date Smoking Tobacco: Never Assessed Sex and Gender Information Value Date Recorded Sex Assigned at Not on file Gender Identity Not on file Sexual Orientation Not on file documented as of this encounter Plan of Treatment Not on file documented as of this encounter Visit Diagnoses Not on filedocumented in this encounter Care Teams Interior Mechanic Relationship Specialty Start Date End Date Maggie Alonzo APRN [address] [place] [address] PCP - General Nurse Practitioner - Family Medicine 06/13/23 documented as of this encounter
--- OUTSIDE RECORDS SUMMARY | 2023-12-04 02:39 | XMS_ITS | Encounter Summary ---
Author Organization [facility] [place] [place] [address] Phone Care Team Providers Care Water Taxi Captain Name Role Phone Maggie Alonzo APRN Primary Care Provider [phone] Encounter Details Date Type Department Care Team (Late st Contact Info) Description 03/04/2021 Notation [facility] Health Information Management [facility], [address] [place] [phone] Generic, Provider [facility] 1 [place] [address] Social History Tobacco Use Types Packs/Day Years [...] Associated Diagnosis Comments SCANNED MISCELLANEOUS LAB TEST 03/04/2021 11:59 PM EST documented in this encounter Results * SCANNED MISCELLANEOUS LAB TEST (03/04/2021 11:59 PM EST) Provider Generic LAB BLOOD ORDERABLES documented in this encounter Visit Diagnoses Not on filedocumented in this encounter Care Teams Water Taxi Captain Relationship Specialty Start Date End Date Maggie Alonzo APRN [address] [place], [place] [id number] PCP - General Nurse Practitioner - Family Medicine 06/13/23 documented as of this encounter
--- OUTSIDE RECORDS SUMMARY | 2023-12-04 02:39 | XMS_ITS | Encounter Summary ---
Author Organization [facility] [place] [address] Phone Care Team Providers Care Spirits Model Name Role Phone Maggie Alonzo APRN Primary Care Provider [phone] Encounter Details Date Type Department Care Team (Late st Contact Info) Description 03/21/2019 Notation [facility] Health Information Management [facility], [address] [place] [phone] Generic, Provider [facility] 1 [place] [address] ER VISIT - PAIN IN TOE Social History Tobacco Use Types Packs/Day Years Used Date Smoking Tobacco: Never Assessed Sex and Gender Information Value Date Recorded Sex Assigned at Not on file Gender Identity Not on file Sexual Orientation Not on file documented as of this encounter Plan of Treatment Not on file documented as of this encounter Visit Diagnoses Not on filedocumented in this encounter Care Teams Spirits Model Relationship Specialty Start Date End Date Maggie Alonzo APRN [address] [place] [address] PCP - General Nurse Practitioner - Family Medicine 06/13/23 documented as of this encounter
--- OUTSIDE RECORDS SUMMARY | 2023-12-04 02:39 | XMS_ITS | Encounter Summary ---
Author Organization [facility] [place] [address] Phone Care Team Providers Care Telegraph Repeater Mechanic Name Role Phone Maggie Alonzo APRN Primary Care Provider [phone] Encounter Details Date Type Department Care Team (Late st Contact Info) Description 08/22/2017 Notation [facility] Health Information Management [facility], [address] [place] [phone] Generic, Provider [facility] 1 [place] [address] ER - LUMARGE W/ SCIATICA, LEFT SIDE Social History Tobacco Use Types Packs/Day Years Used Date Smoking Tobacco: Never Assessed Sex and Gender Information Value Date Recorded Sex Assigned at Not on file Gender Identity Not on file Sexual Orientation Not on file documented as of this encounter Plan of Treatment Not on file documented as of this encounter Visit Diagnoses Not on filedocumented in this encounter Care Teams Telegraph Repeater Mechanic Relationship Specialty Start Date End Date Maggie Alonzo APRN [address] [place] [address] PCP - General Nurse Practitioner - Family Medicine 06/13/23 documented as of this encounter
--- OUTSIDE RECORDS SUMMARY | 2023-12-04 02:39 | XMS_ITS | Encounter Summary ---
Author Organization [facility] [place] [address] Phone Care Team Providers Care Kitchenhand Name Role Phone Maggie Alonzo APRN Primary Care Provider [phone] Encounter Details Date Type Department Care Team (Late st Contact Info) Description 04/24/2018 Notation [facility] Health Information Management [facility], [address] [place] [phone] Generic, Provider [facility] 1 [place] [address] Social History Tobacco Use Types Packs/Day Years [...] Associated Diagnosis Comments SCANNED MISCELLANEOUS LAB TEST 04/24/2018 11:59 PM EST documented in this encounter Results * SCANNED MISCELLANEOUS LAB TEST (04/24/2018 11:59 PM EST) Provider Generic LAB BLOOD ORDERABLES documented in this encounter Visit Diagnoses Not on filedocumented in this encounter Care Teams Kitchenhand Relationship Specialty Start Date End Date Maggie Alonzo APRN [address] [place], [place] [id number] PCP - General Nurse Practitioner - Family Medicine 06/13/23 documented as of this encounter
--- OUTSIDE RECORDS SUMMARY | 2023-12-04 02:39 | XMS_ITS | Encounter Summary ---
Author Organization [facility] [place] [address] Phone Care Team Providers Care Automatic Transmission Mechanic Name Role Phone Maggie Alonzo APRN Primary Care Provider [phone] Encounter Details Date Type Department Care Team (Late st Contact Info) Description 08/21/2016 Notation [facility] Health Information Management [facility], [address] [place] [phone] Generic, Provider [facility] 1 [place] [address] ED REPORT - BRONCHITIS Social History Tobacco Use Types Packs/Day Years Used Date Smoking Tobacco: Never Assessed Sex and Gender Information Value Date Recorded Sex Assigned at Not on file Gender Identity Not on file Sexual Orientation Not on file documented as of this encounter Plan of Treatment Not on file documented as of this encounter Visit Diagnoses Not on filedocumented in this encounter Care Teams Automatic Transmission Mechanic Relationship Specialty Start Date End Date Maggie Alonzo APRN [address] [place] [address] PCP - General Nurse Practitioner - Family Medicine 06/13/23 documented as of this encounter
--- OUTSIDE RECORDS SUMMARY | 2023-12-04 02:39 | XMS_ITS | Encounter Summary ---
Author Organization [facility] [place] [address] Phone Care Team Providers Care Slots Manager Name Role Phone Maggie Alonzo APRN Primary Care Provider [phone] Encounter Details Date Type Department Care Team (Late st Contact Info) Description 10/08/2016 Notation [facility] Health Information Management [facility], [address] [place] [phone] Generic, Provider [facility] 1 [place] [address] Social History Tobacco Use Types Packs/Day Years [...] Associated Diagnosis Comments SCANNED MISCELLANEOUS LAB TEST 10/08/2016 11:59 PM EDT documented in this encounter Results * SCANNED MISCELLANEOUS LAB TEST (10/08/2016 11:59 PM EDT) Provider Generic LAB BLOOD ORDERABLES documented in this encounter Visit Diagnoses Not on filedocumented in this encounter Care Teams Slots Manager Relationship Specialty Start Date End Date Maggie Alonzo APRN [address] [place], [place] [id number] PCP - General Nurse Practitioner - Family Medicine 06/13/23 documented as of this encounter
--- OUTSIDE RECORDS SUMMARY | 2023-12-04 02:39 | XMS_ITS | Encounter Summary ---
Author Organization [facility] [place] [address] Phone Care Team Providers Care Allopathic Doctor Name Role Phone Maggie Alonzo APRN Primary Care Provider [phone] Encounter Details Date Type Department Care Team (Late st Contact Info) Description 07/21/2017 Notation [facility] Health Information Management [facility], [address] [place] [id number] Generic, Provider [facility] [address] [place] [address] ER -MODERATE RIGHT ANKLE SPRAIN Social History Tobacco Use Types Packs/Day Years Used Date Smoking Tobacco: Never Assessed Sex and Gender Information Value Date Recorded Sex Assigned at Not on file Gender Identity Not on file Sexual Orientation Not on file documented as of this encounter Plan of Treatment Not on file documented as of this encounter Visit Diagnoses Not on filedocumented in this encounter Care Teams Allopathic Doctor Relationship Specialty Start Date End Date Maggie Alonzo APRN [address] [place] [address] PCP - General Nurse Practitioner - Family Medicine 06/13/23 documented as of this encounter
--- OUTSIDE RECORDS SUMMARY | 2023-12-04 02:39 | XMS_ITS | Encounter Summary ---
Author Organization [facility] [place] [address] Phone Care Team Providers Care Building Rental Superintendent Name Role Phone Maggie Alonzo APRN Primary Care Provider Encounter Details Date Type Department Care Team (Late st Contact Info) Description 04/19/2017 Notation [facility] Health Information Management [facility], [address] [place] [id number] Generic, Provider [facility] [address] [place] [address] Social History Tobacco Use Types Packs/Day Years [...] Associated Diagnosis Comments SCANNED MISCELLANEOUS LAB TEST 04/19/2017 11:59 PM EST documented in this encounter Results * SCANNED MISCELLANEOUS LAB TEST (04/19/2017 11:59 PM EST) Provider Generic LAB BLOOD ORDERABLES documented in this encounter Visit Diagnoses Not on filedocumented in this encounter Care Teams Building Rental Superintendent Relationship Specialty Start Date End Date Maggie Alonzo APRN [address] [place], [place] [id number] PCP - General Nurse Practitioner - Family Medicine 06/13/23 documented as of this encounter
[2023-12-04 02:49] VITALS: BP 121/96
== END 2023-12-04 02:50 | disposition home or self-care (01) ==
PROVIDERS: Emergency Provider Student in an Organized Health Care Education/Training Program
DX: F10.929 Alcohol use, unspecified with intoxication, unspecified (principal)
CPT/HCPCS: 99281; 99282